=== PATIENT | male | born 1945 | race Caucasian/White ===

== ENCOUNTER 2016-11-03 09:01 | Inpatient (IN) | payer MEDICARE ==
--- NOTE | ~2016-11-03 | DS ---
Discharge Summary [facility] [address] [place]. [address] NAME: RON MCKINNEY : 47 STATUS : DIS IN PAT#: [id number] AGE: 71 ADM/REG DATE : 11/03/16 MR#: [id number] REPORT SERV DATE: 11/10/16 DICTATED BY: TIAGO SANCHEZ DATE: 11/09/16 REPORT STATUS : Draft TRANSCRIBED BY: MODL DATE: 11/09/16 ADMISSION DATE: 11/03/2016 DISCHARGE DATE: 11/09/2016 CHIEF COMPLAINT: Dysphagia. DISCHARGE DIAGNOSES: 1. Nausea, vomiting, and diarrhea due to multifactorial etiology. 2. Clostridium difficile colitis. 3. Cryptosporidium gastroenteritis. 4. Esophageal cancer, status post J-tube. 5. Hypertension. 6. Severe protein-calorie malnutrition. HISTORY OF PRESENT ILLNESS: Please see full H and P for details regarding admission from Dr. Maira Aguilar. HOSPITAL COURSE: 1. Diarrhea. The patient has a diagnosis of C. diff colitis. He will be discharged on a long vancomycin taper as he may be getting chemotherapy starting next week. At this point, we are holding. 2. Nausea, vomiting, and diarrhea. Patient also diagnosed with Cryptosporidium gastroenteritis. He will be on Alinia for a total of 14 days. He has improved, however, once tube feeds had been resumed, he did have worsening of his symptoms. He was changed from Osmolite to Vital 1.5 given concern for possible lactose intolerance. Currently, he is refusing rate of tube feed on the pump which may help his nausea and demanding to do both these at home; Home Health will assist him. 3. Esophageal cancer. The patient will be followed with chemoradiation per Dr. Sarmiento's guidance. He is status post J-tube for nausea, and he will take n.p.o. as appropriate. 4. Hypertension, continue home medications. 5. Severe protein-calorie malnutrition. Again, the patient has declined to do a pump to help with nausea and wants to do bolus feeding with Vital 1.5. As per Nutrition recommendation, would be 5 cans a day. Home health will assist with the supplies. 6. Leukopenia and anemia due to chemotherapy. Follow up with Dr. Sarmiento next week. DISCHARGE MEDICATIONS: Norvasc 5 mg daily, metoprolol 12.5 p.o. b.i.d., Alinia 500 mg p.o. b.i.d. for 8 days, vancomycin p.o. taper for C. diff, Zofran p.r.n., famotidine 20 mg daily, Compazine p.r.n., and Flomax 0.4 p.o. daily. DISCHARGE LABS: White blood cell count 3.3, hemoglobin 8.5, and platelet count 323. BMP grossly unremarkable. Time spent on discharge is greater than 30 minutes including discussion with Home Health. Discharge Summary [address] [address] NAME: RON MCKINNEY : 47 STATUS : DIS IN PAT#: [id number] AGE: 71 ADM/REG DATE : 11/03/16 MR#: [id number] REPORT SERV DATE: 11/10/16 DICTATED BY: TIAGO SANCHEZ DATE: 11/09/16 REPORT STATUS : Draft TRANSCRIBED BY: SOLEDAD DATE: 11/09/16 ROSA/SOLEDAD Tiago Sanchez MD / [id number] CC: MD Sal Black M.D.
--- NOTE | ~2016-11-03 | HP ---
History And Physical [place] [id number] [facility] [place]. [address] NAME: RON MCKINNEY : 47 STATUS : ADM IN [facility]#: [id number] AGE: 71 ADM/REG DATE : 11/03/16 MR#: [id number] REPORT SERV DATE: 11/03/16 DICTATED BY: ORESTES AGUILAR DATE: 11/03/16 REPORT STATUS : Draft TRANSCRIBED BY: MODDonald DATE: 11/03/16 DATE OF ADMISSION: 11/03/2016 CHIEF COMPLAINT: Dysphagia. HISTORY OF PRESENT ILLNESS: The patient is a very pleasant 71-year-old white male, who was diagnosed with esophageal cancer in September 2016. He has undergone J-tube placement with laparoscopic surgery and additionally EGD with a T3 N1 esophageal tumor diagnosed. The plan is for radiation and chemotherapy and then ultimately resection of the mass. He currently sees Dr. Sarmiento. He started chemo. It sounds like he took Taxol and carboplatin which was started on the 26 of October and radiation on the same day. Since starting radiation and chemo, he has had progressive dysphagia to the point where he can no longer take medicines or liquids by mouth or foods. He had a J-tube placed as this was expected in the course of his treatment that he had increased difficulties with swallowing. He has had some nausea and vomiting and he has had some slow movement through the tube. He has also had some intermittent diarrhea. He was seen in the [facility] yesterday, got some IV iron but also got some IV fluid resuscitation which seemed to help somewhat but he continues to be unable to take anything by mouth. He was not sure what to do thus far as what to do with tube feeds, so he presented to [facility] Emergency Department. Otherwise he has not had fever or chills. He does not have any abdominal pain. PAST MEDICAL HISTORY: Positive for 1. T3 N1 esophageal CA, currently undergoing chemo and radiation with plans for resection. 2. J-tube placement. 3. Port-A-Cath placement. 4. Hypertension. 5. Hyperlipidemia. 6. BPH. SOCIAL HISTORY: He previously smoked, he quit in September when he was diagnosed. He does not currently use alcohol but he previously did but not heavily. He is . His is at bedside. FAMILY HISTORY: His father had colon cancer. He has a brother who had lung cancer and another brother who had colon cancer, both are . ALLERGIES: NO DRUG ALLERGIES. HOME MEDICATIONS: Reviewed and attached. REVIEW OF SYSTEMS: A 10-point review of systems obtained with pertinent positives mentioned in the HPI. PHYSICAL EXAMINATION: VITAL SIGNS: Current vital signs, blood pressure 150/72, sats 99%, pulse 98, temperature is 98.2, and respirations 16. History And Physical [address] [address] NAME: RON MCKINNEY : 47 STATUS : ADM IN [facility]#: [id number] AGE: 71 ADM/REG DATE : 11/03/16 MR#: [id number] REPORT SERV DATE: 11/03/16 DICTATED BY: ORESTES AGUILAR DATE: 11/03/16 REPORT STATUS : Draft TRANSCRIBED BY: SOLEDAD DATE: 11/03/16 GENERAL: Well-developed white male, pleasant, talkative. HEENT: Normocephalic, atraumatic. Throat is clear. NECK: Supple. HEART: Regular rate and rhythm. LUNGS: Grossly clear. ABDOMEN: Soft, nondistended, nontender. He has a midline incision which is about 2 inches long, it looks clean and dry with no evidence of erythema. The edges are well approximated. He has a J-tube in place. The site looks clean and dry without any erythema. He has positive bowel sounds. He is soft, nontender, and nondistended on palpation. EXTREMITIES: Warm and dry. SKIN: Intact. He has no rashes or lesions noted. NEUROLOGIC: His mood and affect are appropriate. He has normal strength and tone in all four extremities. LAB AND X-RAY STUDIES: He had a feeding tube with Gastrografin done and it showed that there was good contrast opacifying the jejunum with no obstruction and no contrast extravasation. Urinalysis was essentially normal. Basic metabolic panel is essentially normal other than a mildly elevated BUN at 28. He had a glucose of 132. LFTs were normal. CBC shows an anemia with a hemoglobin of 9.2, hematocrit of 30. White count is 7.7, platelets are 339. Baseline hemoglobin previously was about 9.4 at the office. ASSESSMENT/PLAN: 1. Progressive dysphagia in a patient with esophageal cancer T3 N1, undergoing chemo and radiation. This is not surprising given the fact that he is receiving radiation therapy. I think it was suspected that he would likely need the J-tube for nutrition. We would have Nutrition see him in consultation to help us set up plans for what type of feeds and at what rate. Looks like the tube is functioning perfectly normal. I think we ought to go ahead with that. He is nontender on exam. His abdomen is benign. I suspect most of the side effects of his dysphagia are secondary to radiation. I suspect that most of the side effects of his nausea, vomiting, and diarrhea are secondary to chemotherapy. I am going to hydrate him aggressively overnight and replace the electrolytes as needed. We will have Nutrition see him in consultation and let Dr. Sarmiento know he is here so that he can see him on rounds tomorrow. We will also let Radiation Oncology know that he is here. 2. History of hypertension. Again we will try to give his crushed medications via the J- tube as this will be the only route that he will have available for some time. 3. Deep venous thrombosis prophylaxis. Subcutaneous Lovenox. 4. Disposition pending above. KIZZY/SOLEDAD Orestes Aguilar M.D. / [id number] History And Physical [address] [address] NAME: RON MCKINNEY : 47 STATUS : ADM IN [facility]#: [id number] AGE: 71 ADM/REG DATE : 11/03/16 MR#: [id number] REPORT SERV DATE: 11/03/16 DICTATED BY: ORESTES AGUILAR DATE: 11/03/16 REPORT STATUS : Draft TRANSCRIBED BY: SOLEDAD DATE: 11/03/16 CC: Nikita Morrissey M.D.
[~2016-11-03 09:01] MED LIST: CALTRAT600 PO; FLOMAX4 PO; GARLIC PO; LOP25 PO; MULTIPLE VIT PO; NORV5 PO; PEP20 PO
[2016-11-03 11:31] LABS: BASOPHILS 0 %; EOSINOPHILS 0 %; ER CBC TAT 0 Hrs 03 Mins; HEMATOCRIT 30.2 % (40.0-51.0); HEMOGLOBIN 9.2 g/dL (13.6-17.8); IMMATURE GRANULOCYTES 0.3 %; IMMATURE GRANULOCYTES ABSOLUTE 0.02 10/3/uL (0.0-0.11); LYMPHOCYTES 4.5 %; LYMPHOCYTES ABSOLUTE 0.35 10/3/uL (0.67-4.30); MEAN CORPUS HGB CONC 30.5 g/dL (32.0-36.0); MEAN CORPUSCULAR HEMOGLOB 23.7 pg (26.0-34.0); MEAN PLATELET VOLUME 9.1 fL (9.2-13.0); MONOCYTES 4.2 %; MONOCYTES ABSOLUTE 0.32 10/3/uL (0.21-1.20); NEUTROPHILS ABSOLUTE 7.01 10/3/uL (2.02-8.40); PLATELET COUNT 339 10/3/uL (150-400); RED CELL COUNT 3.88 10/6/uL (4.7-6.1); WHITE BLOOD CELLS 7.7 10/3/uL (4.5-10.5)
[2016-11-03 11:32] LABS: MANUAL DIFF NO %; MEAN CORPUSCULAR VOLUME 77.8 fL (80-100); RBC DISTRIBUTION WIDTH 17.2 % (12.0-16.0)
[2016-11-03 11:45] LABS: A/G RATIO 1.1 (0.7-1.9); ALBUMIN 3.6 G/DL (3.5-5.0); ALKALINE PHOSPHATASE 47 U/L (45-117); CALCIUM, SERUM 8.2 MG/DL (8.5-10.4); CHLORIDE, SERUM 106 MMOL/L (96-112); CO2 (CARBON DIOXIDE) 25 MMOL/L (24-34); CREATININE 0.83 MG/DL (0.70-1.30); GFR AFRICAN AMERICAN 103 ML/MIN (>=60); GFR NON AFRICAN AMERICAN 89 ML/MIN (>=60); GLOBULIN 3.2 G/DL (2.5-4.1); POTASSIUM, SERUM 3.9 MMOL/L (3.5-5.3); SGOT(AST) 9 U/L (5-40); SGPT(ALT) 13 U/L (5-65); SODIUM, SERUM 141 MMOL/L (135-148); TOTAL BILIRUBIN 0.4 MG/DL (0-1.2); TOTAL PROTEIN 6.8 G/DL (6.0-8.5)
[2016-11-03 11:48] LABS: BUN (BLOOD UREA NITROGEN) 28 MG/DL (6-23); GLUCOSE, SERUM 132 MG/DL (60-99)
[2016-11-03 12:19] LABS: ASCORBIC ACID (UR NOT ORDER) NEG (NEG); BILIRUBIN, URINE NEGATIVE (NEG); ER URINALYSIS TAT 0 Hrs 08 Mins; KETONE, URINE TRACE MG/DL (NEG); LEUKOCYTE ESTERASE(NOT OR NEG (NEG); NITRITE (URINE) NEG (NEG); WBC (NOT ORDERED) (RFLEX) 5 (0-5)
[2016-11-03] MEDS ORDERED: NORV5 PO (12:36)
[2016-11-03] MEDS ORDERED: FLOMAX4 PO (12:37)
[2016-11-03] MEDS ORDERED: LOP25 PO (12:37)
[2016-11-03] MEDS ORDERED: ADVIL PO (12:37)
[2016-11-03] MEDS ORDERED: PEP20 PO (12:37)
[2016-11-03] MEDS ORDERED: COMP10B PO (12:38)
[2016-11-03] MEDS ORDERED: [UNRECOGNIZED DRUG - OTHER] IV (12:41)
[2016-11-03] MEDS ORDERED: [UNRECOGNIZED DRUG - REMARK] IV (12:42)
[2016-11-03] MEDS ORDERED: OTC ALLERGY TABLET PO (12:45)
[2016-11-04 04:55] LABS: BASOPHILS 0 %; EOSINOPHILS 0 %; HEMOGLOBIN 8.6 g/dL (13.6-17.8); IMMATURE GRANULOCYTES 0.5 %; IMMATURE GRANULOCYTES ABSOLUTE 0.03 10/3/uL (0.0-0.11); LYMPHOCYTES 2.8 %; LYMPHOCYTES ABSOLUTE 0.17 10/3/uL (0.67-4.30); MEAN CORPUS HGB CONC 30.7 g/dL (32.0-36.0); MEAN CORPUSCULAR HEMOGLOB 24.9 pg (26.0-34.0); MEAN PLATELET VOLUME 9.7 fL (9.2-13.0); MONOCYTES 5.5 %; MONOCYTES ABSOLUTE 0.34 10/3/uL (0.21-1.20); NEUTROPHILS 91.2 %; NEUTROPHILS ABSOLUTE 5.59 10/3/uL (2.02-8.40); PLATELET COUNT 294 10/3/uL (150-400); RBC DISTRIBUTION WIDTH 17.5 % (12.0-16.0); RED CELL COUNT 3.45 10/6/uL (4.7-6.1); WHITE BLOOD CELLS 6.1 10/3/uL (4.5-10.5)
[2016-11-04 05:00] LABS: MANUAL DIFF NO %; MEAN CORPUSCULAR VOLUME 81.2 fL (80-100)
[2016-11-04 05:06] LABS: CALCIUM, SERUM 7.7 MG/DL (8.5-10.4); CHLORIDE, SERUM 111 MMOL/L (96-112); CO2 (CARBON DIOXIDE) 25 MMOL/L (24-34); CREATININE 0.65 MG/DL (0.70-1.30); GFR AFRICAN AMERICAN 114 ML/MIN (>=60); GFR NON AFRICAN AMERICAN 99 ML/MIN (>=60); GLUCOSE, SERUM 113 MG/DL (60-99); POTASSIUM, SERUM 3.3 MMOL/L (3.5-5.3); SODIUM, SERUM 145 MMOL/L (135-148)
[2016-11-04 05:12] LABS: BUN (BLOOD UREA NITROGEN) 18 MG/DL (6-23)
[2016-11-06 07:50] LABS: BASOPHILS 0 %; EOSINOPHILS 1.7 %; EOSINOPHILS ABSOLUTE 0.06 10/3/uL (0.0-0.53); HEMATOCRIT 25.8 % (40.0-51.0); HEMOGLOBIN 7.9 g/dL (13.6-17.8); IMMATURE GRANULOCYTES 0.3 %; IMMATURE GRANULOCYTES ABSOLUTE 0.01 10/3/uL (0.0-0.11); LYMPHOCYTES 4.8 %; LYMPHOCYTES ABSOLUTE 0.17 10/3/uL (0.67-4.30); MANUAL DIFF NO %; MEAN CORPUS HGB CONC 30.6 g/dL (32.0-36.0); MEAN CORPUSCULAR HEMOGLOB 24.1 pg (26.0-34.0); MEAN CORPUSCULAR VOLUME 78.7 fL (80-100); MEAN PLATELET VOLUME 9.7 fL (9.2-13.0); MONOCYTES 3.1 %; MONOCYTES ABSOLUTE 0.11 10/3/uL (0.21-1.20); NEUTROPHILS 90.1 %; NEUTROPHILS ABSOLUTE 3.21 10/3/uL (2.02-8.40); PLATELET COUNT 210 10/3/uL (150-400); RBC DISTRIBUTION WIDTH 17.6 % (12.0-16.0); RED CELL COUNT 3.28 10/6/uL (4.7-6.1); WHITE BLOOD CELLS 3.6 10/3/uL (4.5-10.5)
[2016-11-06 08:19] LABS: ALKALINE PHOSPHATASE 50 U/L (45-117); CALCIUM, SERUM 7.5 MG/DL (8.5-10.4); CHLORIDE, SERUM 104 MMOL/L (96-112); CO2 (CARBON DIOXIDE) 26 MMOL/L (24-34); CREATININE 0.51 MG/DL (0.70-1.30); GFR AFRICAN AMERICAN 126 ML/MIN (>=60); GFR NON AFRICAN AMERICAN 109 ML/MIN (>=60); GLUCOSE, SERUM 124 MG/DL (60-99); POTASSIUM, SERUM 3.4 MMOL/L (3.5-5.3); SGOT(AST) 6 U/L (5-40); SGPT(ALT) 9 U/L (5-65); TOTAL BILIRUBIN 0.2 MG/DL (0-1.2)
[2016-11-06 08:20] LABS: ALBUMIN 2.6 G/DL (3.5-5.0); BUN (BLOOD UREA NITROGEN) 6 MG/DL (6-23); GLOBULIN 2.5 G/DL (2.5-4.1); SODIUM, SERUM 138 MMOL/L (135-148); TOTAL PROTEIN 5.1 G/DL (6.0-8.5)
[2016-11-09 04:33] LABS: BASOPHILS 0.3 %; BASOPHILS ABSOLUTE 0.01 10/3/uL (0.0-0.16); EOSINOPHILS 2.7 %; EOSINOPHILS ABSOLUTE 0.09 10/3/uL (0.0-0.53); HEMATOCRIT 27.2 % (40.0-51.0); HEMOGLOBIN 8.5 g/dL (13.6-17.8); IMMATURE GRANULOCYTES 0.3 %; IMMATURE GRANULOCYTES ABSOLUTE 0.01 10/3/uL (0.0-0.11); LYMPHOCYTES 8.5 %; LYMPHOCYTES ABSOLUTE 0.28 10/3/uL (0.67-4.30); MEAN CORPUS HGB CONC 31.3 g/dL (32.0-36.0); MEAN CORPUSCULAR HEMOGLOB 25.5 pg (26.0-34.0); MEAN PLATELET VOLUME 10.2 fL (9.2-13.0); MONOCYTES 9.1 %; NEUTROPHILS 79.1 %; NEUTROPHILS ABSOLUTE 2.59 10/3/uL (2.02-8.40); RBC DISTRIBUTION WIDTH 19.9 % (12.0-16.0); RED CELL COUNT 3.33 10/6/uL (4.7-6.1); WHITE BLOOD CELLS 3.3 10/3/uL (4.5-10.5)
[2016-11-09 04:35] LABS: MANUAL DIFF NO %; MEAN CORPUSCULAR VOLUME 81.7 fL (80-100); PLATELET COUNT 323 10/3/uL (150-400)
[2016-11-09 07:40] LABS: CALCIUM, SERUM 7.8 MG/DL (8.5-10.4); CHLORIDE, SERUM 106 MMOL/L (96-112); CO2 (CARBON DIOXIDE) 22 MMOL/L (24-34); CREATININE 0.64 MG/DL (0.70-1.30); GFR AFRICAN AMERICAN 115 ML/MIN (>=60); GFR NON AFRICAN AMERICAN 99 ML/MIN (>=60); SODIUM, SERUM 137 MMOL/L (135-148)
[2016-11-09 07:41] LABS: BUN (BLOOD UREA NITROGEN) 13 MG/DL (6-23); GLUCOSE, SERUM 99 MG/DL (60-99); POTASSIUM, SERUM 4.3 MMOL/L (3.5-5.3)
[2016-11-09] MEDS ORDERED: ALINIA J-TUBE (13:59)
[2016-11-09] MEDS ORDERED: ZOFRAN4 PO (14:00)
[2016-11-09] MEDS ORDERED: VANCOCIN HCL125 MG PO (14:05)
[2016-11-24] MEDS ORDERED: CHEMO IV (14:20)
[2016-11-24] MEDS ORDERED: FLOMAX4 PO (14:21)
[2016-11-24] MEDS ORDERED: LOP25 PO (14:21)
[2016-11-24] MEDS ORDERED: NORV5 PO (14:21)
[2016-11-24] MEDS ORDERED: VANCOMYCIN 125 MG PO (14:22)
[2016-11-24] MEDS ORDERED: COMP10B PO ×2 (14:22→14:24)
[2016-11-24] MEDS ORDERED: [UNRECOGNIZED DRUG - REMARK] IV (14:23)
[2016-11-24] MEDS ORDERED: IMOD PO (14:24)
[2016-11-24] MEDS ORDERED: PROBIOTIC PO (14:25)
[2016-11-24] MEDS ORDERED: MAALOX PO (14:25)
[2016-11-24] MEDS ORDERED: OTC ALLERGY MED PO (14:29)
[2017-01-21] MEDS ORDERED: LOP25 PO (15:28)
[2017-01-21] MEDS ORDERED: ACET500CAP PO (15:29)
== END 2016-11-09 16:10 | disposition home health service (06) | DRG 371 ==
LOC: ER 09:01 → ER/OF 14:47 → 4SO 18:58 → 4EA 11-07 14:32
PROVIDERS: Hospitalist; Internal Medicine; Internal Medicine Hematology & Oncology
PROC: BW0 Imaging, Anatomical Regions, Plain Radiography (ICD-10-PCS; principal; 2016-11-03)
DX: A04.7 Enterocolitis due to Clostridium difficile (principal); E43 Unspecified severe protein-calorie malnutrition; C15.9 Malignant neoplasm of esophagus, unspecified; R13.11 Dysphagia, oral phase; Z68.22 Body mass index [BMI] 22.0-22.9, adult; I10 Essential (primary) hypertension; E78.5 Hyperlipidemia, unspecified; N40.0 Benign prostatic hyperplasia without lower urinary tract symptoms; A07.2 Cryptosporidiosis; Z51.5 Encounter for palliative care
CPT/HCPCS: 43761; 74000; 76000; 77386; 80048; 80053; 81001; 83735; 84132; 85025; 87045; 87046; 87046-59; 87328; 87329; 87493; 87493-59; 87899; 87899-59; 89055; 96361; 96374; 99285; A9270-GY; C9113; J0360; J2405

== ENCOUNTER 2016-11-24 15:40 | Inpatient (IN) | payer MEDICARE, SELFPAY ==
--- NOTE | ~2016-11-24 | HP ---
History And Physical [place] [id number] [facility] [place]. [address] NAME: RON MCKINNEY : 47 STATUS : ADM IN PAT#: [id number] AGE: 71 ADM/REG DATE : 11/24/16 MR#: [id number] REPORT SERV DATE: 11/24/16 DICTATED BY: ALE RESENDIZ DATE: 11/24/16 REPORT STATUS : Draft TRANSCRIBED BY: MODL DATE: 11/24/16 DATE OF ADMISSION: 11/24/2016 HISTORY OF PRESENT ILLNESS: This is a 71-year-old patient whom I was asked to admit transfer from [facility] after he presented there with inability to keep food down and feeling weak. The patient was found to have also associated diarrhea, weakness, nausea, vomiting that seems to be constant in nature. The patient also was noted to have vomited blood. Further evaluation at [facility] showed an INR of 1.3. Hemoglobin initially was 6. The patient was typed and crossed and was transfused four units of blood. During his hospitalization there, the patient did have a brief episode of being pulseless. CPR was initiated and return of circulation was established in two minutes. The patient got 1 amp of epi and then was intubated for airway protection. He was hypotensive and was started on Levophed. He was also volume resuscitated. The patient has a known history of a fungating esophageal mass and adenocarcinoma in the distal esophagus at the EG junction. The patient is status post neoadjuvant chemotherapy and port placement for chemotherapy administration. The patient also received 2 units of fresh frozen plasma. The patient is followed by Dr. Sarmiento as an outpatient. 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 EUS with two large in lymph loads showed the mass extending into the GE junction and was staged at T3, N1. The patient then had weekly carboplatin and Taxol and radiation induction. The patient also has a history of C difficile that was diagnosed on the 11/03/2016 and is currently on a tapering dose of Vancocin. Apparently, his diarrhea has resolved according to Dr. Sarmiento's notes. After further evaluation at [facility], it was thought prudent to transfer the patient to [facility] for mesenteric arteriogram and possible embolization. Both Surgical Services and GI Services have been notified of the patient's transfer. ALLERGIES: THE PATIENT HAS NO KNOWN DRUG ALLERGIES. CURRENT MEDICATIONS: Maalox, Norvasc at 5 mg, Imodium at 2 mg q.4 hours p.r.n., Lopressor 12.5 mg b.i.d., probiotic, Compazine, Flomax, chemotherapy as per Dr. Sarmiento, last treatment was to be given today, actually the 11/24/2016. Last treatment was taken on the 11/17/2016. He is on a tapering dose of vancomycin. We will have Pharmacy to determine where along the course he is. PAST MEDICAL HISTORY: Significant for: 1. T3 N1 esophageal cancer, currently undergoing chemotherapy. The patient is status post port placement by Dr. Sosa on 10/25/2016. 2. History of hypertension. 3. Hyperlipidemia. 4. BPH. SOCIAL HISTORY: Significant for smoking and the patient quit in September and does not currently use alcohol but had a previously heavy use of alcohol. He is and lives at home with his . FAMILY HISTORY: Significant for colon cancer in his father and he has a brother who had lung History And Physical [address] [address] NAME: RON MCKINNEY : 47 STATUS : ADM IN [facility]#: [id number] AGE: 71 ADM/REG DATE : 11/24/16 MR#: [id number] REPORT SERV DATE: 11/24/16 DICTATED BY: ALE RESENDIZ DATE: 11/24/16 REPORT STATUS : Draft TRANSCRIBED BY: SOLEDAD DATE: 11/24/16 cancer and another brother with colon cancer, both are . REVIEW OF SYSTEMS: Could not be obtained from the patient since he is orally intubated, sedated, and was paralyzed for transfer to this facility. PHYSICAL EXAMINATION: GENERAL: The patient is orally intubated and sedated with Diprivan and received 10 mg of Norcuron for transfer, I believe. He appears pale. CURRENT VITAL SIGNS: He is 100% saturated on an FiO2 of 100, tidal volume of 550, CMV of 14, and PEEP of 5. Heart rate is 98, he is afebrile, respiratory rate is 14, and blood pressure 150/86. SKIN: Warm and dry. HEENT: Head is atraumatic and normocephalic. The patient appears emaciated. He is orally intubated. OG tube in place draining bloody gastric secretions. NECK: Easily movable and is without JVD, lymphadenopathy, or thyromegaly. LUNGS: Diminished at the bases. No wheezing is heard. CARDIAC: Reveals a regular rate and rhythm. No significant murmurs. ABDOMEN: Flat nondistended with a J-tube in place without any evidence of infection or drainage. He has a right femoral central line. He also has a left subclavian port that is accessed. Brown catheter is in place. There are no masses felt in the abdomen. Bowel sounds are diminished. EXTREMITIES: Without cyanosis, clubbing, or edema. Pulses are palpable and symmetrical. NEUROLOGIC: Exam is not possible at this time secondary to paralytics and sedation. DATA: Chest x-ray shows good placement of the endotracheal tube. Port in place. Lungs he feels are without infiltrate. KUB shows jejunal feeding tube in place. NG tube is present with the chip in the stomach. P.m. cortisol is 51. Procalcitonin pending. Sodium 143, potassium 4.7, chloride 110 , bicarb 25, BUN 52, creatinine 0.88, blood sugar 157, magnesium 2.8, phosphorus 1.2. White cell count 8.2, hemoglobin 9.2, hematocrit 26, and platelet count of 107,000. PTT is 26, PT is 15.9, INR is 1.3. ABG is pending. ASSESSMENT AND PLAN: 1. The patient will be scheduled for mesenteric arteriogram with embolization if possible to control bleeding of his esophageal tumor. The patient will be kept intubated and sedated. Neurologic exam will be monitored. 2. Serial H and H's will be obtained. The patient has been typed and crossed with instructions to keep two units ahead. 3. Gastrointestinal intervention at this time is not possible since this is the bleeding fungating esophageal mass, but Dr. Rodriguez is aware of the patient and if need be, will be consulted. 4. We will make Dr. Pantera Holcomb aware that the patient is in-house since he is on-call for Dr. Sosa who is familiar with the patient. 5. We will consult Hematology/Oncology if needed for further prognostic treatment, prognostic planning, and further chemotherapy once this is resolved. 6. The patient was diagnosed with Clostridium difficile on the 11/03/2016 and we will continue Vancocin down the J-tube. History And Physical [facility] [address]. [address] NAME: RON MCKINNEY : 47 STATUS : ADM IN PAT#: [id number] AGE: 71 ADM/REG DATE : 11/24/16 MR#: [id number] REPORT SERV DATE: 11/24/16 DICTATED BY: ALE RESENDIZ DATE: 11/24/16 REPORT STATUS : Draft TRANSCRIBED BY: SOLEDAD DATE: 11/24/16 Total time spent with this patient's critical care time commenced at 3:50 p.m. and ended at 4.50 p.m. The patient is in critical condition, needs frequent monitoring, hemodynamic assessment, and management of blood products, blood pressure, and pressors. Total time for critical care is 60 minutes. JULIANA/SOLEDAD Ale Resendiz M.D. / [id number] CC: Ale Resendiz M.D. UNKNOWN
--- NOTE | ~2016-11-24 | DS ---
Discharge Summary [facility] [address] [place]. [address] NAME: RON MCKINNEY : 47 STATUS : DIS IN PAT#: [id number] AGE: 71 ADM/REG DATE : 11/24/16 MR#: [id number] REPORT SERV DATE: 01/17/17 DICTATED BY: CESAR SU II DATE: 01/16/17 REPORT STATUS : Draft TRANSCRIBED BY: MODL DATE: 01/16/17 ADMISSION DATE: 11/24/2016 DISCHARGE DATE: 12/02/2016 DISCHARGE DIAGNOSES: 1. Acute gastrointestinal bleed secondary to bleeding esophageal tumor. 2. Acute blood loss anemia. 3. Stage T3, N1 esophageal adenocarcinoma, status post chemotherapy and currently on radiation. 4. PEA arrest. 5. Clostridium difficile diarrhea. 6. Hypertension. 7. BPH. CONSULTS: 1. Dr. Resendiz with Critical Care. 2. Dr. Rodriguez with GI. 3. Dr. Kenney with Cardiothoracic Surgery. PROCEDURES: Interventional Radiology catheter embolization of bleeding esophageal tumor. BRIEF HISTORY OF PRESENT ILLNESS: The patient is a 71-year-old male with the above history, who presents to [facility] as a transfer from [facility] where he had a brief episode of PEA arrest and was quickly resuscitated and subsequently transferred. For detailed history and physical examination, please see Dr. Resendiz's note from 01/22/2017. For details of the patient's ICU stay, please see Dr. Resendiz's interim summary. He was overall stabilized in the ICU but continued to bleed and was taken to Interventional Radiology for embolization which was successful. The patient's hemoglobin stabilized, and he was eventually able to be transferred to the floor. Regarding his anemia, his hemoglobin actually remained stable, between 8 and 9. His tube feeds were restarted, and he had trouble with diarrhea and had a rectal tube in while in the ICU. This was removed and improved with Zanaflex and Lomotil. Regarding his esophageal cancer, his radiation was continued, and at the time of discharge had 5 more days, so he was transferred to [facility] for further rehab while finishing out his radiation. Regarding his C. diff, his repeat stool antigen was negative, and the patient continued the vancomycin taper. The patient was overall stable for discharge. DISCHARGE MEDICATIONS: 1. Lomotil 5 mg p.o. q.6 hours. 2. Imodium 2 mg p.o. q.4 hours. 3. Vancomycin taper through 12/12/2016. 4. Opium belladonna suppository q.6 hours p.r.n. bladder spasms. 5. Seroquel 25 mg p.o. at bedtime. 6. Compazine 10 mg p.o. daily. 7. Compazine 10 mg q.4 hours p.r.n. nausea. 8. Flomax 0.4 mg p.o. daily. 9. Probiotic daily. Discharge Summary [place] [id number] [facility] [place]. [address] NAME: RON MCKINNEY : 47 STATUS : DIS IN PAT#: [id number] AGE: 71 ADM/REG DATE : 11/24/16 MR#: [id number] REPORT SERV DATE: 01/17/17 DICTATED BY: CESAR SU II DATE: 01/16/17 REPORT STATUS : Draft TRANSCRIBED BY: SOLEDAD DATE: 01/16/17 DISCHARGE INSTRUCTIONS: The patient will continue radiation while at [facility] undergoing rehab. ALVARO/SOLEDAD Cesar Su II, MD / [id number] CC: MD Sal Ray II, M.D.
--- NOTE | ~2016-11-24 | IDS ---
Interim Discharge Summary [facility] [address] [place]. [address] NAME: RON MCKINNEY : 47 STATUS : ADM IN PAT#: [id number] AGE: 71 ADM/REG DATE : 11/24/16 MR#: [id number] REPORT SERV DATE: 11/26/16 DICTATED BY: ALE RESENDIZ DATE: 11/26/16 REPORT STATUS : Draft TRANSCRIBED BY: MODL DATE: 11/26/16 ADMISSION DATE: 11/24/2016 DISCHARGE DATE: INTERIM DISCHARGE SUMMARY This is a 71-year-old patient that we were asked to admit as a transfer from [facility] Emergency Room after he presented there with nausea, vomiting, and weakness associated with diarrhea. The patient was found to have a hemoglobin of 6 and actually had a brief episode of CPR and PEA. Return of circulation was under 2 minutes, was on 1 amp of epi. The patient was then volume resuscitated and intubated. 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 He was staged at T3 N1 and was followed by Dr. Sarmiento getting weekly carboplatin and Taxol and radiation induction. The patient also was diagnosed with C. diff diarrhea and on 11/03/2016 and has been on Vancocin. It was of concern that the patient may continue to bleed and then when the patient was transferred here, he was stabilized and by the time he got here was already off Levophed. He was taken to Interventional Radiology and actually did find an area, where he was embolized and came back to the MICU, intubated, and with a left femoral sheath. Since that time, he has had serial hemoglobin and hematocrits and has not required any further transfusion. He was successfully extubated on the morning of 11/26/2016 and his sheath was pulled on the afternoon of 11/26/2016 and he remains in stable condition. I have decreased the frequency of his serial hemoglobin and hematocrits. He currently remains off Levophed and had a right femoral line and that has been changed to a PICC line. GI, Dr. Rodriguez saw the patient on 11/25/2016 and has recommended continuing Protonix drip for 48 to 72 hours. The patient already has a J-tube that was established by Dr. Sosa as well as a left subclavian port that also was placed by Dr. Sosa; however, Dr. Sosa is out of town and Dr. Pantera Holcomb is covering for Dr. Sosa. The surgical service was notified of the patient when he first came here in the event that he needed to go to the OR for any reason. Dr. Kenney saw the patient and was aware of him in the event that he had to be taken to the OR, which did not happen. Dr. Rodriguez also said that he would not be doing any endoscopy on the patient at this time and felt that he was at high risk for bleeding in the setting of embolization in a patient who has already received chemo and radiation therapy. I further discussed the patient with Dr. Stringer who is on-call for [facility] and he in fact spoke with Dr. Sarmiento and the consensus from the oncologist is that he is at high risk for cancer treatment failure and if he does not do well or continues to have issues with bleeding and there was no improving then palliative care would be appropriate. However, I am not aware that any of the Hematology Oncology attendings have spoken to the family directly. I did update the daughter on . Today, I have not had the opportunity to talk to her. So, I think the plan for this patient will be to start nutrition through the J-tube. He really should be n.p.o. Continue the Protonix drip as recommended by Dr. Rodriguez. If he remains stable, he possibly can be transferred to the floor and I think further discussion has to be had with the oncologist and the family regarding code status and/or palliative care. I do not think that any further chemotherapy or radiation therapy will be pursued at this time. The patient is a full code as of this dictation. Interim Discharge Summary [place] [id number] [facility] [place]. [address] NAME: RON MCKINNEY : 47 STATUS : ADM IN PAT#: [id number] AGE: 71 ADM/REG DATE : 11/24/16 MR#: [id number] REPORT SERV DATE: 11/26/16 DICTATED BY: ALE RESENDIZ DATE: 11/26/16 REPORT STATUS : Draft TRANSCRIBED BY: MODDonald DATE: 11/26/16 /SOLEDAD Ale Resendiz M.D. / [id number] CC: Nikita Perez M.D.
--- NOTE | ~2016-11-24 | CN ---
Consultation Report [facility] [address] [place]. [address] NAME: RON MCKINNEY : 47 STATUS : ADM IN PAT#: [id number] AGE: 71 ADM/REG DATE : 11/24/16 MR#: [id number] REPORT SERV DATE: 11/24/16 DICTATED BY: CESAR KENNEY JR. DATE: 11/24/16 REPORT STATUS : Draft TRANSCRIBED BY: MODL DATE: 11/24/16 CONSULTATION NOTE DATE OF CONSULTATION: 11/24/2016 REASON FOR CONSULTATION: Esophageal bleeding. BRIEF HISTORY OF PRESENT ILLNESS: This is a 71-year-old gentleman who was transferred from [facility] to [facility] or [facility] for apparently GI bleed associated with esophageal cancer. 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 Recent PET scan on the patient demonstrated some thickening and abnormality to his distal esophagus but he had a significant uptake within the proximal gastric component, had significant uptake within the proximal stomach. Difficult to tell whether this image-humphrey was actually an esophageal or gastric cancer. An endoscopy by Dr. Charles Wray had demonstrated a mass in the distal esophagus with imaging studies confirming likely N1 disease. The patient has had a previous history of Clostridium difficile diagnosed in October and is on vancomycin for that. He is currently in special procedures as he was undergoing a mesenteric arteriogram for possible embolization. Dr. Ryan Sosa is his primary surgeon but was out of town. I have been asked to consult on the patient in case surgical intervention is needed. ALLERGIES: THE PATIENT HAS NO KNOWN DRUG ALLERGIES. MEDICATIONS: Maalox; Norvasc; Imodium; Lopressor; probiotic ;Compazine; Flomax, currently getting chemotherapy by Dr. Stevie Sarmiento. He is also on tapering dose of vancomycin. PAST MEDICAL HISTORY: Significant for the T3 N1 esophageal adenocarcinoma as well as esophageal cancer. He is currently undergoing chemotherapy and radiation therapy. He has had a port placed by Dr. Ryan Sosa on 10/25/2016. He has a history of hypertension, hyperlipidemia, and benign prostatic hypertrophy. The patient has a significant past history of heavy alcohol use with recent smoking of an unknown quantity. The patient was intubated and could not elicit that from the patient. He apparently quit in September. FAMILY HISTORY: Significant for colon cancer in his father and his brother had lung cancer. REVIEW OF SYSTEMS: Cannot be obtained since the patient is orally intubated, sedated, and was paralyzed for transfer to [facility]. PHYSICAL EXAMINATION: GENERAL: This is a sedated intubated patient who appears pale. VITAL SIGNS: Current vital signs, O2 saturation 100% on FiO2 100%, tidal volume is 550, CMV of 14, and PEEP of 5. His heart rate is 98, respiratory rate 14, and blood pressure is 150/86. Consultation Report [place] [id number] [facility] [place]. [address] NAME: RON MCKINNEY : [birth year] STATUS : ADM IN [facility]#: [id number] AGE: 71 ADM/REG DATE : 11/24/16 MR#: [id number] REPORT SERV DATE: 11/24/16 DICTATED BY: CESAR KENNEY JR. DATE: 11/24/16 REPORT STATUS : Draft TRANSCRIBED BY: SOLEDAD DATE: 11/24/16 HEENT: His head was atraumatic, normocephalic. The patient appears malnourished. Orogastric tube was placed and draining bloody secretions. NECK: Supple with no lymphadenopathy or thyromegaly. LUNGS: Diminished in both bases. CARDIOVASCULAR: Revealed no murmurs or rubs. ABDOMEN: Soft, nontender with a J-tube in place. EXTREMITIES: Showed no significant edema or cyanosis. Pulses were palpable bilaterally. NEUROLOGIC: Was unable to be assessed given the patient's current status. DATA: Chest x-ray shows placement of endotracheal tube. KUB shows jejunal feeding tube in place. PM cortisol is 51. Procalcitonin is pending. Sodium is 143, potassium 4.7, chloride 110, bicarb 25, BUN 52, and creatinine 0.88. Blood sugar is 157. His hemoglobin was 9.2 and platelets 107,000. IMPRESSION: This is a gentleman with apparently an upper GI bleed related to esophageal cancer. He has been undergoing chemotherapy and radiation therapy for his cancer. I do not think emergent surgical intervention is indicated. We will continue to be available during the resuscitative efforts. He is currently in special procedures getting an embolization procedure performed. I would be happy to follow along and provide help as needed. SHREYAS/SOLEDAD Cesar Kenney Jr., M.D. / [id number] CC: Amy Resendiz M.D.
--- NOTE | ~2016-11-24 | CN ---
Consultation Report [facility] [address] [place]. [address] NAME: RON CHAVARRIA : 47 STATUS : ADM IN [facility]#: [id number] AGE: 71 ADM/REG DATE : 11/24/16 MR#: [id number] REPORT SERV DATE: 11/25/16 DICTATED BY: RAYMOND ZHU DATE: 11/25/16 REPORT STATUS : Draft TRANSCRIBED BY: MODL DATE: 11/25/16 INPATIENT CONSULT NOTE DATE OF CONSULTATION: 11/25/2016 REASON FOR CONSULTATION: Upper GI bleeding. HISTORY OF PRESENT ILLNESS: Mr. Chavarria is an unfortunate 71-year-old male patient who presented to the emergency department yesterday with complaints of weakness and fatigue. The patient also complained of having vomited blood. The patient was noted initially upon presentation to have a hemoglobin of 6.1 with an INR of 1.3. The patient's past medical history is significant for esophageal adenocarcinoma that had been diagnosed previously for which he has been undergoing treatment with chemotherapy and XRT. During his stay in the emergency department and while he was being evaluated, the patient was noted to turn ashen and become unresponsive. The patient was noted to have a very low blood pressure at that time and had no pulse, although he did maintain a rhythm on the monitors. CPR was initiated, and the patient was able to be revived with a full fluid bolus. Repeat ABG check of his hemoglobin showed his hemoglobin had fallen down to 5.0. No bright red blood per rectum. No melena by report. No further suggestion of upper GI bleeding. The patient was intubated for airway protection and was stabilized hemodynamically with the addition of Levophed and he was transferred emergently to the [facility] where he underwent angiography and embolization of a blood vessel feeding his esophagus by report. REVIEW OF SYSTEMS: Review of systems was unable to be performed as patient is intubated and sedated. PAST MEDICAL HISTORY: Includes: 1. Esophageal cancer stage is T3 N1, currently undergoing chemotherapy and radiation therapy. 2. Hypertension. 3. Hyperlipidemia. 4. BPH. FAMILY HISTORY: The patient does have a significant family history for colon cancer. SOCIAL HISTORY: The patient reportedly quit smoking in September. No alcohol or illicit substance use. ALLERGIES: THE PATIENT HAS NO KNOWN ALLERGIES. OUTPATIENT MEDICATIONS: Include 1. Flomax. 2. Lopressor. 3. Norvasc. Consultation Report [facility] [address] [place]. [address] NAME: RON CHAVARRIA : 47 STATUS : ADM IN PAT#: [id number] AGE: 71 ADM/REG DATE : 11/24/16 MR#: [id number] REPORT SERV DATE: 11/25/16 DICTATED BY: RAYMOND ZHU DATE: 11/25/16 REPORT STATUS : Draft TRANSCRIBED BY: MODL DATE: 11/25/16 4. Compazine. 5. Vancomycin. 6. Imodium. 7. Probiotic. 8. Maalox. PHYSICAL EXAMINATION: VITAL SIGNS: Most recent vital signs include temperature of 98.9, blood pressure of 98/72, pulse of 100, and saturating 100% on room air. GENERAL INSPECTION: Reveals a elderly male, lying in bed, in no apparent distress. He is intubated and sedated. HEENT: Head is normocephalic, atraumatic. Sclerae nonicteric. Pupils are equal and round. HEART: Pulse rate is mildly tachycardic. Both normal S1, S2. LUNGS: Sounds are very coarse to auscultation anteriorly. ABDOMEN: Soft, nontender, nondistended with normoactive bowel sounds. EXTREMITIES: The patient has no cyanosis, clubbing, or edema. SKIN: No jaundice or rash. NEUROLOGIC: No motor deficits were able to be established as patient is sedated also mental status could not be evaluated as well. LABORATORY DATA: Most recent laboratory results include hemoglobin of 8.3, white count of 6.4, and platelet count of 142,000. Electrolytes were remarkable only for an elevated BUN of 46. Phosphorus was low at 1.6. No pertinent imaging to review. ASSESSMENT AND PLAN: Mr. Chavarria is an unfortunate 71-year-old male with a stage T3 N1 esophageal adenocarcinoma undergoing chemotherapy and radiation, who presented with an upper gastrointestinal bleed, almost certainly bleeding from his cancer. He was taken for urgent embolization after undergoing a PEA arrest in the emergency department at [facility]. Currently, the patient is not stable for endoscopic evaluation or treatment, having just sustained a cardiac arrest within the last 24 hours. We would recommend continued supportive care and transfusion of blood and blood products as needed. 1. We would continue Protonix drip for at least a 48 to 72 hours. 2. We will keep the patient n.p.o. for the time being. 3. We would continue to monitor hemoglobin, platelets, and coagulation factors and transfuse blood products as felt necessary. The patient should be continued with supportive care at this point. Thank you very much for this interesting consult. We will continue to follow along with you. Please call with any questions concerns you might have. EMMA/SOLEDAD Consultation Report [place] [id number] [facility] [place]. [address] NAME: RON CHAVARRIA : 47 STATUS : ADM IN [facility]#: [id number] AGE: 71 ADM/REG DATE : 11/24/16 MR#: [id number] REPORT SERV DATE: 11/25/16 DICTATED BY: RAYMOND ZHU DATE: 11/25/16 REPORT STATUS : Draft TRANSCRIBED BY: SOLEDAD DATE: 11/25/16 Raymond Zhu MD / [id number] CC: Nikita Perez M.D.
[~2016-11-24 15:40] MED LIST changes: +ADVIL PO; +ALINIA J-TUBE; +CHEMO IV; +COMP10B PO; +IMOD PO; +MAALOX PO; +OTC ALLERGY MED PO; +OTC ALLERGY TABLET PO; +PROBIOTIC PO; +VANCOCIN HCL125 MG PO; +VANCOMYCIN 125 MG PO; +ZOFRAN4 PO; +[UNRECOGNIZED DRUG - OTHER] IV; +[UNRECOGNIZED DRUG - REMARK] IV; +[UNRECOGNIZED DRUG - REMARK] IV
[2016-11-24 16:24] LABS: HEMATOCRIT 26.6 % (40.0-51.0); HEMOGLOBIN 9.2 g/dL (13.6-17.8); MEAN PLATELET VOLUME 9.4 fL (9.2-13.0); NUCLEATED RED BLOOD CELLS 2.6 /100WBC (0-0); WHITE BLOOD CELLS 8.2 10/3/uL (4.5-10.5)
[2016-11-24 16:26] LABS: MANUAL DIFF YES %; MEAN CORPUS HGB CONC 34.6 g/dL (32.0-36.0); MEAN CORPUSCULAR HEMOGLOB 29.9 pg (26.0-34.0); MEAN CORPUSCULAR VOLUME 86.4 fL (80-100); PLATELET COUNT 107 10/3/uL (150-400); RBC DISTRIBUTION WIDTH 16.8 % (12.0-16.0); RED CELL COUNT 3.08 10/6/uL (4.7-6.1)
[2016-11-24 16:28] LABS: INTERNATIONAL NORMAL RATI 1.3 UNITS (-); PARTIAL THROMBO TIME 26.3 SEC (22.5-37.2); PROTIME (NOT ORD) 15.9 SEC (12.0-14.5)
[2016-11-24 16:46] LABS: BUN (BLOOD UREA NITROGEN) 52 MG/DL (6-23); CALCIUM, SERUM 7.2 MG/DL (8.5-10.4); CHLORIDE, SERUM 110 MMOL/L (96-112); CO2 (CARBON DIOXIDE) 25 MMOL/L (24-34); CREATININE 0.88 MG/DL (0.70-1.30); GFR AFRICAN AMERICAN 101 ML/MIN (>=60); GFR NON AFRICAN AMERICAN 87 ML/MIN (>=60); GLUCOSE, SERUM 157 MG/DL (60-99); PHOSPHORUS, SERUM 1.2 MG/DL (2.5-4.5); POTASSIUM, SERUM 4.7 MMOL/L (3.5-5.3); SODIUM, SERUM 143 MMOL/L (135-148)
[2016-11-24 16:51] LABS: ALLENS TEST Pos; BE (BASE EXCESS) 4.4 MEQ/L (0 +/- 2.5); HCO3 (ACTUAL BICARBONATE) 27.1 MEQ/L (23-27); HEMOBLOGIN CONTENT 9.5 G/DL (14-18); INSTRUMENT SERIAL # 8083; METHEMOGLOBIN 0.3 % (0-3); MODE CMV; O2 CONTENT 14.7 VOL% (18-24); OPERATOR ID 14382; PCO2 (CO2 TENSION) 33 MMHG (35-45); PO2 (O2 TENSION) 516 MMHG (79-93); SAMPLE Arterial; TIDAL VOLUME 550 ML; pH 7.53 (7.37-7.43)
[2016-11-24 16:53] LABS: BAND NEUTROPHILS 1 %; IMMATURE GRANS ABSOLUTE (CALC) 0.08 10/3/uL (0.0-0.11); LYMPHOCYTES 1 %; LYMPHOCYTES ABSOLUTE (CALC) 0.08 10/3/uL (0.67-4.30); MONOCYTES 5 %; MONOCYTES ABSOLUTE (CALC) 0.41 10/3/uL (0.21-1.20); MYELOCYTES 1 %; NEUTROPHILS ABSOLUTE (CALC) 7.63 10/3/uL (2.02-8.40); PLATELET ESTIMATE SLT DEC (ADEQUATE); SEGMENTED NEUTROPHIL (0) 92 %; TOTAL NUCLEATED CELLS 100
[2016-11-24 16:54] LABS: ANISOCYTOSIS 1+ (5-10/OIF) (0-5/OIF); POLYCHROMASIA 1+ (2-5/OIF) (0-1/OIF)
[2016-11-24 16:55] LABS: TOXIC GRANULATION SLT
[2016-11-24 17:12] LABS: PROCALCITONIN 0.27 ng/mL (<0.5)
[2016-11-24 21:01] LABS: FREE T4 0.89 NG/DL (0.76-1.46)
[2016-11-24 21:06] LABS: TROPONIN I 0.49 NG/ML (<0.05)
[2016-11-24 22:23] LABS: ASCORBIC ACID (UR NOT ORDER) NEG (NEG); BILIRUBIN, URINE NEGATIVE (NEG); KETONE, URINE NEGATIVE (NEG); LEUKOCYTE ESTERASE(NOT OR NEG (NEG); WBC (NOT ORDERED) (RFLEX) 1 (0-5)
[2016-11-25 00:07] LABS: HEMATOCRIT 25.6 % (40.0-51.0); HEMOGLOBIN 8.6 g/dL (13.6-17.8)
[2016-11-25 04:21] LABS: INTERNATIONAL NORMAL RATI 1.3 UNITS (-); PROTIME (NOT ORD) 15.6 SEC (12.0-14.5)
[2016-11-25 04:27] LABS: BASOPHILS 0.2 %; BASOPHILS ABSOLUTE 0.01 10/3/uL (0.0-0.16); EOSINOPHILS 0 %; HEMATOCRIT 26.6 % (40.0-51.0); HEMOGLOBIN 9.2 g/dL (13.6-17.8); IMMATURE GRANULOCYTES 0.8 %; IMMATURE GRANULOCYTES ABSOLUTE 0.05 10/3/uL (0.0-0.11); LYMPHOCYTES 1.4 %; LYMPHOCYTES ABSOLUTE 0.09 10/3/uL (0.67-4.30); MEAN CORPUS HGB CONC 34.6 g/dL (32.0-36.0); MEAN CORPUSCULAR HEMOGLOB 29.7 pg (26.0-34.0); MEAN CORPUSCULAR VOLUME 85.8 fL (80-100); MEAN PLATELET VOLUME 10.2 fL (9.2-13.0); MONOCYTES 8.9 %; MONOCYTES ABSOLUTE 0.57 10/3/uL (0.21-1.20); NEUTROPHILS 88.7 %; NEUTROPHILS ABSOLUTE 5.71 10/3/uL (2.02-8.40); NUCLEATED RED BLOOD CELLS 4.6 /100WBC (0-0); WHITE BLOOD CELLS 6.4 10/3/uL (4.5-10.5)
[2016-11-25 04:33] LABS: MANUAL DIFF NO %; PLATELET COUNT 142 10/3/uL (150-400)
[2016-11-25 04:37] LABS: CALCIUM, SERUM 7.5 MG/DL (8.5-10.4); CHLORIDE, SERUM 114 MMOL/L (96-112); CO2 (CARBON DIOXIDE) 25 MMOL/L (24-34); CREATININE 0.86 MG/DL (0.70-1.30); GFR AFRICAN AMERICAN 102 ML/MIN (>=60); GFR NON AFRICAN AMERICAN 88 ML/MIN (>=60); GLUCOSE, SERUM 128 MG/DL (60-99); POTASSIUM, SERUM 4.7 MMOL/L (3.5-5.3); SODIUM, SERUM 148 MMOL/L (135-148)
[2016-11-25 04:39] LABS: BUN (BLOOD UREA NITROGEN) 46 MG/DL (6-23); PHOSPHORUS, SERUM 1.6 MG/DL (2.5-4.5)
[2016-11-25 07:42] LABS: HEMATOCRIT 26.1 % (40.0-51.0); HEMOGLOBIN 8.7 g/dL (13.6-17.8)
[2016-11-25 07:43] LABS: BE (BASE EXCESS) 0.5 MEQ/L (0 +/- 2.5); CARBOXYHEMOGLOBIN 0.3 % (0-3); HCO3 (ACTUAL BICARBONATE) 23.5 MEQ/L (23-27); HEMOBLOGIN CONTENT 9.3 G/DL (14-18); INSTRUMENT SERIAL # 11843; METHEMOGLOBIN 0.9 % (0-3); MODE CMV; OPERATOR ID 334499; PCO2 (CO2 TENSION) 32 MMHG (35-45); PO2 (O2 TENSION) 150 MMHG (79-93); SAMPLE Arterial; TIDAL VOLUME 500 ML; pH 7.49 (7.37-7.43)
[2016-11-25 11:50] LABS: HEMATOCRIT 25.5 % (40.0-51.0); HEMOGLOBIN 8.3 g/dL (13.6-17.8)
[2016-11-25 16:58] LABS: HEMATOCRIT 26.3 % (40.0-51.0); HEMOGLOBIN 8.7 g/dL (13.6-17.8)
[2016-11-25 23:02] LABS: HEMATOCRIT 25.4 % (40.0-51.0); HEMOGLOBIN 8.1 g/dL (13.6-17.8)
[2016-11-26 03:57] LABS: HEMATOCRIT 26.6 % (40.0-51.0); HEMOGLOBIN 8.4 g/dL (13.6-17.8)
[2016-11-26 07:02] LABS: BUN (BLOOD UREA NITROGEN) 27 MG/DL (6-23); CHLORIDE, SERUM 119 MMOL/L (96-112); CO2 (CARBON DIOXIDE) 25 MMOL/L (24-34); CREATININE 0.69 MG/DL (0.70-1.30); GFR AFRICAN AMERICAN 111 ML/MIN (>=60); GFR NON AFRICAN AMERICAN 96 ML/MIN (>=60); GLUCOSE, SERUM 107 MG/DL (60-99); POTASSIUM, SERUM 3.9 MMOL/L (3.5-5.3); SODIUM, SERUM 153 MMOL/L (135-148)
[2016-11-26 07:15] LABS: INTERNATIONAL NORMAL RATI 1.2 UNITS (-); PROTIME (NOT ORD) 14.9 SEC (12.0-14.5)
[2016-11-26 10:34] LABS: HEMOGLOBIN 8.5 g/dL (13.6-17.8)
[2016-11-26 11:22] LABS: PREALBUMIN 13.4 MG/DL (17.0-43.0)
[2016-11-27 00:49] LABS: HEMATOCRIT 25.2 % (40.0-51.0); HEMOGLOBIN 8.1 g/dL (13.6-17.8)
[2016-11-27 05:19] LABS: CHLORIDE, SERUM 123 MMOL/L (96-112); CO2 (CARBON DIOXIDE) 27 MMOL/L (24-34); CREATININE 0.69 MG/DL (0.70-1.30); GFR AFRICAN AMERICAN 111 ML/MIN (>=60); GFR NON AFRICAN AMERICAN 96 ML/MIN (>=60); POTASSIUM, SERUM 3.6 MMOL/L (3.5-5.3)
[2016-11-27 05:28] LABS: BASOPHILS 0.2 %; BASOPHILS ABSOLUTE 0.01 10/3/uL (0.0-0.16); BUN (BLOOD UREA NITROGEN) 23 MG/DL (6-23); EOSINOPHILS 0 %; GLUCOSE, SERUM 156 MG/DL (60-99); HEMATOCRIT 26.3 % (40.0-51.0); IMMATURE GRANULOCYTES 0.4 %; IMMATURE GRANULOCYTES ABSOLUTE 0.02 10/3/uL (0.0-0.11); LYMPHOCYTES 4.3 %; LYMPHOCYTES ABSOLUTE 0.24 10/3/uL (0.67-4.30); MEAN CORPUSCULAR HEMOGLOB 28.3 pg (26.0-34.0); MEAN PLATELET VOLUME 9.9 fL (9.2-13.0); MONOCYTES 3.2 %; MONOCYTES ABSOLUTE 0.18 10/3/uL (0.21-1.20); NEUTROPHILS 91.9 %; NUCLEATED RED BLOOD CELLS 1.2 /100WBC (0-0); PHOSPHORUS, SERUM 1.8 MG/DL (2.5-4.5); RED CELL COUNT 2.83 10/6/uL (4.7-6.1); SODIUM, SERUM 158 MMOL/L (135-148); WHITE BLOOD CELLS 5.6 10/3/uL (4.5-10.5)
[2016-11-27 05:30] LABS: MANUAL DIFF NO %; MEAN CORPUS HGB CONC 30.4 g/dL (32.0-36.0); MEAN CORPUSCULAR VOLUME 92.9 fL (80-100); PLATELET COUNT 194 10/3/uL (150-400); RBC DISTRIBUTION WIDTH 21.9 % (12.0-16.0)
[2016-11-27 11:44] LABS: HEMATOCRIT 25.3 % (40.0-51.0); HEMOGLOBIN 7.9 g/dL (13.6-17.8)
[2016-11-27 14:49] LABS: HEMATOCRIT 25.3 % (40.0-51.0); HEMOGLOBIN 8.2 g/dL (13.6-17.8)
[2016-11-27 15:02] LABS: BUN (BLOOD UREA NITROGEN) 20 MG/DL (6-23); CALCIUM, SERUM 7.7 MG/DL (8.5-10.4); CHLORIDE, SERUM 121 MMOL/L (96-112); CO2 (CARBON DIOXIDE) 29 MMOL/L (24-34); CREATININE 0.67 MG/DL (0.70-1.30); GFR AFRICAN AMERICAN 113 ML/MIN (>=60); GFR NON AFRICAN AMERICAN 97 ML/MIN (>=60); GLUCOSE, SERUM 119 MG/DL (60-99); POTASSIUM, SERUM 3.4 MMOL/L (3.5-5.3); SODIUM, SERUM 156 MMOL/L (135-148)
[2016-11-27 20:17] LABS: HEMATOCRIT 23.8 % (40.0-51.0); HEMOGLOBIN 7.6 g/dL (13.6-17.8)
[2016-11-28 04:32] LABS: BASOPHILS 0 %; EOSINOPHILS 0.3 %; EOSINOPHILS ABSOLUTE 0.01 10/3/uL (0.0-0.53); HEMATOCRIT 23.3 % (40.0-51.0); HEMOGLOBIN 7.5 g/dL (13.6-17.8); IMMATURE GRANULOCYTES 0.3 %; IMMATURE GRANULOCYTES ABSOLUTE 0.01 10/3/uL (0.0-0.11); LYMPHOCYTES 3.9 %; LYMPHOCYTES ABSOLUTE 0.14 10/3/uL (0.67-4.30); MEAN CORPUSCULAR HEMOGLOB 30.4 pg (26.0-34.0); MEAN CORPUSCULAR VOLUME 94.3 fL (80-100); MEAN PLATELET VOLUME 9.4 fL (9.2-13.0); MONOCYTES 5.6 %; NEUTROPHILS 89.9 %; PLATELET COUNT 180 10/3/uL (150-400); RBC DISTRIBUTION WIDTH 21.5 % (12.0-16.0); RED CELL COUNT 2.47 10/6/uL (4.7-6.1); WHITE BLOOD CELLS 3.6 10/3/uL (4.5-10.5)
[2016-11-28 04:35] LABS: MANUAL DIFF NO %; MEAN CORPUS HGB CONC 32.2 g/dL (32.0-36.0)
[2016-11-28 04:44] LABS: A/G RATIO 0.8 (0.7-1.9); ALKALINE PHOSPHATASE 52 U/L (45-117); CALCIUM, SERUM 7.5 MG/DL (8.5-10.4); CHLORIDE, SERUM 113 MMOL/L (96-112); CO2 (CARBON DIOXIDE) 28 MMOL/L (24-34); CREATININE 0.56 MG/DL (0.70-1.30); GFR AFRICAN AMERICAN 121 ML/MIN (>=60); GFR NON AFRICAN AMERICAN 105 ML/MIN (>=60); GLOBULIN 2.4 G/DL (2.5-4.1); PHOSPHORUS, SERUM 2.3 MG/DL (2.5-4.5); POTASSIUM, SERUM 3.4 MMOL/L (3.5-5.3); SGOT(AST) 11 U/L (5-40); SGPT(ALT) 13 U/L (5-65); TOTAL BILIRUBIN 0.2 MG/DL (0-1.2); TOTAL PROTEIN 4.3 G/DL (6.0-8.5)
[2016-11-28 04:45] LABS: ALBUMIN 1.9 G/DL (3.5-5.0); BUN (BLOOD UREA NITROGEN) 14 MG/DL (6-23); GLUCOSE, SERUM 171 MG/DL (60-99); SODIUM, SERUM 148 MMOL/L (135-148)
[2016-11-28 04:57] LABS: PREALBUMIN 12.5 MG/DL (17.0-43.0)
[2016-11-28 16:35] LABS: HEMATOCRIT 23.3 % (40.0-51.0); HEMOGLOBIN 7.5 g/dL (13.6-17.8)
[2016-11-28 16:45] LABS: BUN (BLOOD UREA NITROGEN) 10 MG/DL (6-23); CALCIUM, SERUM 7.5 MG/DL (8.5-10.4); CHLORIDE, SERUM 108 MMOL/L (96-112); CO2 (CARBON DIOXIDE) 28 MMOL/L (24-34); CREATININE 0.45 MG/DL (0.70-1.30); GFR AFRICAN AMERICAN 133 ML/MIN (>=60); GFR NON AFRICAN AMERICAN 115 ML/MIN (>=60); GLUCOSE, SERUM 135 MG/DL (60-99); POTASSIUM, SERUM 3.4 MMOL/L (3.5-5.3); SODIUM, SERUM 143 MMOL/L (135-148)
[2016-11-29 06:38] LABS: BASOPHILS 0 %; EOSINOPHILS 0.3 %; EOSINOPHILS ABSOLUTE 0.01 10/3/uL (0.0-0.53); HEMATOCRIT 25.5 % (40.0-51.0); HEMOGLOBIN 8.1 g/dL (13.6-17.8); IMMATURE GRANULOCYTES 0.6 %; IMMATURE GRANULOCYTES ABSOLUTE 0.02 10/3/uL (0.0-0.11); LYMPHOCYTES 4.1 %; LYMPHOCYTES ABSOLUTE 0.13 10/3/uL (0.67-4.30); MEAN CORPUS HGB CONC 31.8 g/dL (32.0-36.0); MEAN CORPUSCULAR HEMOGLOB 29.1 pg (26.0-34.0); MEAN CORPUSCULAR VOLUME 91.7 fL (80-100); MEAN PLATELET VOLUME 8.5 fL (9.2-13.0); MONOCYTES 6.3 %; NEUTROPHILS 88.7 %; NEUTROPHILS ABSOLUTE 2.82 10/3/uL (2.02-8.40); PLATELET COUNT 194 10/3/uL (150-400); RBC DISTRIBUTION WIDTH 19.6 % (12.0-16.0); RED CELL COUNT 2.78 10/6/uL (4.7-6.1); WHITE BLOOD CELLS 3.2 10/3/uL (4.5-10.5)
[2016-11-29 06:39] LABS: MANUAL DIFF NO %
[2016-11-29 06:49] LABS: BUN (BLOOD UREA NITROGEN) 8 MG/DL (6-23); CALCIUM, SERUM 7.8 MG/DL (8.5-10.4); CHLORIDE, SERUM 107 MMOL/L (96-112); CO2 (CARBON DIOXIDE) 27 MMOL/L (24-34); CREATININE 0.51 MG/DL (0.70-1.30); GFR AFRICAN AMERICAN 126 ML/MIN (>=60); GFR NON AFRICAN AMERICAN 109 ML/MIN (>=60); GLUCOSE, SERUM 160 MG/DL (60-99); PHOSPHORUS, SERUM 2.6 MG/DL (2.5-4.5); POTASSIUM, SERUM 3.9 MMOL/L (3.5-5.3); SODIUM, SERUM 143 MMOL/L (135-148)
[2016-11-29 13:30] LABS: HEMATOCRIT 25.8 % (40.0-51.0); HEMOGLOBIN 8.1 g/dL (13.6-17.8)
[2016-11-29 20:01] LABS: HEMATOCRIT 25.7 % (40.0-51.0); HEMOGLOBIN 8.1 g/dL (13.6-17.8)
[2016-11-30 05:01] LABS: BASOPHILS 0 %; EOSINOPHILS 0.4 %; EOSINOPHILS ABSOLUTE 0.01 10/3/uL (0.0-0.53); HEMATOCRIT 27.3 % (40.0-51.0); HEMOGLOBIN 8.8 g/dL (13.6-17.8); IMMATURE GRANULOCYTES 0.7 %; IMMATURE GRANULOCYTES ABSOLUTE 0.02 10/3/uL (0.0-0.11); LYMPHOCYTES ABSOLUTE 0.11 10/3/uL (0.67-4.30); MEAN CORPUS HGB CONC 32.2 g/dL (32.0-36.0); MEAN CORPUSCULAR HEMOGLOB 29.6 pg (26.0-34.0); MEAN CORPUSCULAR VOLUME 91.9 fL (80-100); MONOCYTES 7.3 %; NEUTROPHILS 87.6 %; NEUTROPHILS ABSOLUTE 2.39 10/3/uL (2.02-8.40); PLATELET COUNT 228 10/3/uL (150-400); RBC DISTRIBUTION WIDTH 19.8 % (12.0-16.0); RED CELL COUNT 2.97 10/6/uL (4.7-6.1); WHITE BLOOD CELLS 2.7 10/3/uL (4.5-10.5)
[2016-11-30 05:10] LABS: MANUAL DIFF NO %
[2016-11-30 05:15] LABS: BUN (BLOOD UREA NITROGEN) 9 MG/DL (6-23); CALCIUM, SERUM 7.4 MG/DL (8.5-10.4); CHLORIDE, SERUM 107 MMOL/L (96-112); CO2 (CARBON DIOXIDE) 28 MMOL/L (24-34); CREATININE 0.48 MG/DL (0.70-1.30); GFR AFRICAN AMERICAN 129 ML/MIN (>=60); GFR NON AFRICAN AMERICAN 112 ML/MIN (>=60); SODIUM, SERUM 143 MMOL/L (135-148)
[2016-11-30 05:16] LABS: GLUCOSE, SERUM 124 MG/DL (60-99)
[2016-12-01 05:08] LABS: BASOPHILS 0 %; EOSINOPHILS 0.3 %; EOSINOPHILS ABSOLUTE 0.01 10/3/uL (0.0-0.53); HEMOGLOBIN 9.5 g/dL (13.6-17.8); IMMATURE GRANULOCYTES 1.1 %; IMMATURE GRANULOCYTES ABSOLUTE 0.04 10/3/uL (0.0-0.11); LYMPHOCYTES 7.6 %; LYMPHOCYTES ABSOLUTE 0.27 10/3/uL (0.67-4.30); MEAN CORPUS HGB CONC 31.5 g/dL (32.0-36.0); MEAN CORPUSCULAR HEMOGLOB 29.4 pg (26.0-34.0); MEAN CORPUSCULAR VOLUME 93.5 fL (80-100); MEAN PLATELET VOLUME 9.6 fL (9.2-13.0); MONOCYTES 4.5 %; MONOCYTES ABSOLUTE 0.16 10/3/uL (0.21-1.20); NEUTROPHILS 86.5 %; NEUTROPHILS ABSOLUTE 3.08 10/3/uL (2.02-8.40); PLATELET COUNT 293 10/3/uL (150-400); RBC DISTRIBUTION WIDTH 20.4 % (12.0-16.0); RED CELL COUNT 3.23 10/6/uL (4.7-6.1); WHITE BLOOD CELLS 3.6 10/3/uL (4.5-10.5)
[2016-12-01 05:11] LABS: HEMATOCRIT 30.2 % (40.0-51.0); MANUAL DIFF NO %
[2016-12-01 05:27] LABS: BUN (BLOOD UREA NITROGEN) 11 MG/DL (6-23); CALCIUM, SERUM 7.8 MG/DL (8.5-10.4); CHLORIDE, SERUM 109 MMOL/L (96-112); CO2 (CARBON DIOXIDE) 27 MMOL/L (24-34); CREATININE 0.56 MG/DL (0.70-1.30); GFR AFRICAN AMERICAN 121 ML/MIN (>=60); GFR NON AFRICAN AMERICAN 105 ML/MIN (>=60); GLUCOSE, SERUM 125 MG/DL (60-99); POTASSIUM, SERUM 4.4 MMOL/L (3.5-5.3); SODIUM, SERUM 143 MMOL/L (135-148)
[2017-01-21] MEDS ORDERED: LOP25 PO (15:28)
[2017-01-21] MEDS ORDERED: ACET500CAP PO (15:29)
== END 2016-12-02 18:03 | DRG 356 ==
LOC: MIC 15:40 → 4EA 11-28 19:38
PROVIDERS: Internal Medicine; Internal Medicine Pulmonary Disease; Nurse Practitioner Adult Health; Radiology Radiation Oncology
PROC: B4101ZZ Fluoroscopy of Abdominal Aorta using Low Osmolar Contrast (ICD-10-PCS; 2016-11-24)
PROC: [UNRECOGNIZED PROCEDURE] (2016-11-24)
PROC: 04L53DZ Occlusion of Superior Mesenteric Artery with Intraluminal Device, Percutaneous Approach (ICD-10-PCS; principal; 2016-11-25)
PROC: 02HV33Z Insertion of Infusion Device into Superior Vena Cava, Percutaneous Approach (ICD-10-PCS; 2016-11-25)
PROC: 4A02X4A Measurement of Cardiac Electrical Activity, Guidance, External Approach (ICD-10-PCS; 2016-11-25)
PROC: 0BH17EZ Insertion of Endotracheal Airway into Trachea, Via Natural or Artificial Opening (ICD-10-PCS; 2016-11-25)
DX: C15.5 Malignant neoplasm of lower third of esophagus (principal); J96.01 Acute respiratory failure with hypoxia; I46.9 Cardiac arrest, cause unspecified; R57.1 Hypovolemic shock; E43 Unspecified severe protein-calorie malnutrition; K92.2 Gastrointestinal hemorrhage, unspecified; A04.7 Enterocolitis due to Clostridium difficile; E87.0 Hyperosmolality and hypernatremia; D62 Acute posthemorrhagic anemia; Z68.1 Body mass index [BMI] 19.9 or less, adult; E78.5 Hyperlipidemia, unspecified; I10 Essential (primary) hypertension; Z87.891 Personal history of nicotine dependence
CPT/HCPCS: 31500; 31720; 36245; 36246; 36415; 36569; 36600; 37244; 71010; 74000; 75726; 75774; 77336; 77386; 80048; 80053; 81001; 82272; 82330; 82533; 82805; 83605; 83735; 84100; 84134; 84145; 84439; 84443; 84484; 85014; 85018; 85025; 85610; 85730; 86850; 86900; 86901; 86920; 87493; 87493-59; 87641; 92950; 93005; 94002; 94003; 94660; 97116-GP; 97162-GP; 99291; 99292; A9270-GY; C1751; C1769; C1887; C1894; C8924; C9113; G8978-CK-GP; G8979-CJ-GP; J0461; J1200; J2405; P9016; P9059; Q9957; Q9967

== ENCOUNTER 2016-12-13 13:12 | Inpatient (IN) | payer MEDICARE ==
--- NOTE | ~2016-12-13 | EGD ---
EGD REPORT [facility] [address] [address] NAME: PAVAN CHAVARRIA : 47 STATUS : ADM IN PAT#: [id number] AGE: 71 ADM/REG DATE : 12/13/16 MR#: [id number] REPORT SERV DATE: 12/18/16 DICTATED BY: CHRISTINA HAMMONDS III DATE: 12/18/16 REPORT STATUS : Draft TRANSCRIBED BY: [facility] DATE: 12/18/16 Endoscopy Center Patient Name: Pavan Chavarria Date of : 1945 Attending MD: CHRISTINA HAMMONDS III, MD Procedure Date No Time: 12/18/2016 Procedure: Upper GI endoscopy Indications: Acute post hemorrhagic anemia, Melena Referring MD: Sal Rodriguez Medicines: Propofol per Anesthesia Complications: No immediate complications. Procedure: Pre-Anesthesia Assessment: - ASA Grade Assessment: III - A patient with severe systemic disease. After obtaining informed consent, the endoscope was passed under direct vision. Throughout the procedure, the patient's blood pressure, pulse, and oxygen saturations were monitored continuously. The GIF H190 [id number] was introduced through the mouth, and advanced to the third part of duodenum. The upper GI endoscopy was accomplished with ease. The patient tolerated the procedure well. Findings: LA Grade D (one or more mucosal breaks involving at least 75% of esophageal circumference) esophagitis with no bleeding was found in the lower third of the esophagus. One non-bleeding cratered gastric ulcer with a visible vessel was found at the gastroesophageal junction and in the cardia. The lesion was 20 mm in largest dimension. Coagulation for bleeding prevention using bipolar probe was applied and the vessel was coagulated. The remained site was removed with resultant active arterial bleeding and hemostasis was achieved with further application of the gold probe. . Two non-bleeding cratered gastric ulcers with no stigmata of bleeding were found at the incisura. The largest lesion was 15 mm in largest dimension. The examined duodenum was normal. A medium-sized hiatus hernia was present. Impression: - LA Grade D chemo/radiation esophagitis. - Gastric ulcer containing visible vessel. - Gastric ulcers with clean base. - Normal examined duodenum. - Hiatus hernia. EGD REPORT [address] [address] NAME: PAVAN CHAVARRIA : 47 STATUS : ADM IN [facility]#: [id number] AGE: 71 ADM/REG DATE : 12/13/16 MR#: [id number] REPORT SERV DATE: 12/18/16 DICTATED BY: CHRISTINA HAMMONDS III DATE: 12/18/16 REPORT STATUS : Draft TRANSCRIBED BY: [employer] DATE: 12/18/16 Procedure Code(s): --- Professional --- 07860, Esophagogastroduodenoscopy, flexible, transoral; with control of bleeding, any method Diagnosis Code(s): --- Professional --- K20.8, Other esophagitis T66.XXXA, Radiation sickness, unspecified, initial encounter K25.4, Chronic or unspecified gastric ulcer with hemorrhage K25.9, Gastric ulcer, unspecified as acute or chronic, without hemorrhage or perforation K44.9, Diaphragmatic hernia without obstruction or gangrene D62, Acute posthemorrhagic anemia K92.1, Melena CPT copyright 2013 [employer]. All rights reserved. The codes documented in this report are preliminary and upon microsoft dynamics developer review may be revised to meet current compliance requirements. CHRISTINA HAMMONDS III, MD 12/18/2016 7:32 AM This report has been signed electronically. Number of Addenda: 0 Note Initiated On: 12/18/2016 6:26 AM Scope Withdrawal Time 0 hours 0 minutes 0 seconds [address] [place] [id number]
--- NOTE | ~2016-12-13 | HP ---
History And Physical [place] [id number] [place]. [address] NAME: RON MCKINNEY : 47 STATUS : ADM IN PAT#: [id number] AGE: 71 ADM/REG DATE : 12/13/16 MR#: [id number] REPORT SERV DATE: 12/13/16 DICTATED BY: TIAGO SANCHEZ DATE: 12/13/16 REPORT STATUS : Draft TRANSCRIBED BY: MODDonald DATE: 12/13/16 DATE OF ADMISSION: 12/13/2016 CHIEF COMPLAINT: Weakness and melena, sent from rehab. HISTORY OF PRESENT ILLNESS: This is a 71-year-old male, known to have a fungating esophageal tumor recently in the hospital in November for GI bleed. He states that he is at rehab and had noted that he was feeling a little bit weaker. Had some melena on Tuesday, no bowel movement yesterday and again a dark bowel movement today. At rehab, they checked his hemoglobin and it was approximately 5. On discharge from his last hospitalization, his hemoglobin was 9.5. The patient denies chest pain, shortness of breath, nausea or vomiting. He says he has occasionally had nausea in the past but nothing recent. REVIEW OF SYSTEMS: A full review of systems was obtained and negative with the exception of above HPI. ALLERGIES: NO KNOWN DRUG ALLERGIES. MEDICATIONS: Maalox p.r.n., Imodium p.r.n., probiotic, Tamiflu 75 mg daily, Compazine 10 mg daily and p.r.n., Flomax 0.4 daily, and vancomycin 125 mg p.o. every 48 hours. PAST MEDICAL HISTORY: History of hypertension; hyperlipidemia; BPH; history of esophageal cancer, currently tolerated very little of his induction chemo per Dr. Sarmiento. He had planned to have a possible surgery for his esophageal mass with Dr. Sosa after discharge from rehab. He also had a cardiac arrest last admission with return of spontaneous circulation after one round of CPR and epi approximately 2 minutes. SOCIAL HISTORY: Has an extensive history of smoking, quit in September when got diagnosed with his esophageal mass. Does not drink alcohol. He is . Currently at rehab. FAMILY HISTORY: Significant for colon cancer in his father and a brother who had lung cancer. PHYSICAL EXAMINATION: VITAL SIGNS: Temperature 98.2, blood pressure 115/62, pulse of 112, respiratory rate 14, saturating 98% on room air. GENERAL: This is a well-developed, well-nourished male, who appears in no acute distress. HEENT: Extraocular muscles are intact. Sclerae anicteric. Pupils equal, round, and reactive to light. He has does have conjunctiva pallor. LUNGS: Clear to auscultation without any appreciable wheezes, rales, or rhonchi. CARDIAC: Sinus tachycardia. No appreciable murmurs. ABDOMEN: Soft, nontender, and nondistended. No palpable masses. EXTREMITIES: Lower extremities are warm and well perfused with no edema. NEURO: Cranial nerves 2 through 12 are grossly intact. Face is symmetric. Tongue is midline. Speech is fluent. History And Physical [address] [address] NAME: RON MCKINNEY : 47 STATUS : ADM IN [facility]#: [id number] AGE: 71 ADM/REG DATE : 12/13/16 MR#: [id number] REPORT SERV DATE: 12/13/16 DICTATED BY: TIAGO SANCHEZ DATE: 12/13/16 REPORT STATUS : Draft TRANSCRIBED BY: SOLEDAD DATE: 12/13/16 IMAGING: None. White blood cell count 7.6, hemoglobin 5.2, platelet count of 238. BMP grossly unremarkable. ASSESSMENT AND PLAN: This is a 71-year-old male with known esophageal mass and previous history of bleeding, presenting with anemia and history of melena. 1. Upper GI bleed, likely due to esophageal mass. We will admit him to the hospital. He had 2 units of blood ordered at this time. We will have serial H and H, GI consultation. I will ask Gastroenterology to see if they can possibly do anything to slow the bleeding of the esophageal mass or search for other etiology. Also consult Dr. Sosa as he previously was planning an outpatient procedure for this esophageal mass to see if anything else needs to be done in the interim since he has had two hospitalizations for bleeding. 2. Esophageal cancer. The patient will be followed by Oncology. His outpatient oncologist is Dr. Sarmiento. He did not tolerate much of his preop chemo. 3. Anemia due to acute blood loss. Two units of blood have been ordered in the ER. We will continue to monitor with serial H and H. Given IV PPI for GI bleeding. 4. History of Clostridium difficile. We will continue p.o. vancomycin taper. 5. History of benign prostatic hypertrophy. Continue Flomax with parameters when the patient is able to take p.o. He will currently be n.p.o. given above GI bleed. 6. Intermittent nausea. Continue outpatient scheduled Compazine. DISPOSITION: We will admit as an inpatient. The patient will be admitted for defensive monitoring. There are no current IMCU beds open. He is hemodynamically stable and I have discussed this with the ER physician, both felt appropriate for a defensive monitoring bed. DNK/MODL Tiago Sanchez MD / [id number] CC: MD Sal Black M.D.
--- NOTE | ~2016-12-13 | EGD ---
EGD REPORT [facility] [address] [address] NAME: PAVAN CHAVARRIA : 47 STATUS : DIS IN PAT#: [id number] AGE: 71 ADM/REG DATE : 12/13/16 MR#: [id number] REPORT SERV DATE: 01/11/17 DICTATED BY: CHRISTINA HAMMONDS III DATE: 01/11/17 REPORT STATUS : Draft TRANSCRIBED BY: [facility] DATE: 01/11/17 Endoscopy Center Patient Name: Pavan Chavarria Date of : 1945 Attending MD: CHRISTINA HAMMONDS III, MD Procedure Date No Time: 12/18/2016 Procedure: Upper GI endoscopy Indications: Acute post hemorrhagic anemia, Melena Referring MD: Sal Rodriguez Medicines: Propofol per Anesthesia Complications: No immediate complications. Procedure: Pre-Anesthesia Assessment: - ASA Grade Assessment: III - A patient with severe systemic disease. After obtaining informed consent, the endoscope was passed under direct vision. Throughout the procedure, the patient's blood pressure, pulse, and oxygen saturations were monitored continuously. The GIF H190 [id number] was introduced through the mouth, and advanced to the third part of duodenum. The upper GI endoscopy was accomplished with ease. The patient tolerated the procedure well. Findings: LA Grade D (one or more mucosal breaks involving at least 75% of esophageal circumference) esophagitis with no bleeding was found in the lower third of the esophagus. One non-bleeding cratered gastric ulcer with a visible vessel was found at the gastroesophageal junction and in the cardia. The lesion was 20 mm in largest dimension. Coagulation for bleeding prevention using bipolar probe was applied and the vessel was coagulated. The remained site was removed with resultant active arterial bleeding and hemostasis was achieved with further application of the gold probe. . Two non-bleeding cratered gastric ulcers with no stigmata of bleeding were found at the incisura. The largest lesion was 15 mm in largest dimension. The examined duodenum was normal. A medium-sized hiatus hernia was present. Impression: - LA Grade D chemo/radiation esophagitis. - Gastric ulcer containing visible vessel. - Gastric ulcers with clean base. - Normal examined duodenum. - Hiatus hernia. EGD REPORT [address] [address] NAME: PAVAN CHAVARRIA : 47 STATUS : DIS IN PAT#: [id number] AGE: 71 ADM/REG DATE : 12/13/16 MR#: [id number] REPORT SERV DATE: 01/11/17 DICTATED BY: CHRISTINA HAMMONDS III DATE: 01/11/17 REPORT STATUS : Draft TRANSCRIBED BY: [employer] DATE: 01/11/17 Procedure Code(s): --- Professional --- 70815, Esophagogastroduodenoscopy, flexible, transoral; with control of bleeding, any method Diagnosis Code(s): --- Professional --- K20.8, Other esophagitis T66.XXXA, Radiation sickness, unspecified, initial encounter K25.4, Chronic or unspecified gastric ulcer with hemorrhage K25.9, Gastric ulcer, unspecified as acute or chronic, without hemorrhage or perforation K44.9, Diaphragmatic hernia without obstruction or gangrene D62, Acute posthemorrhagic anemia K92.1, Melena CPT copyright 2013 [employer]. All rights reserved. The codes documented in this report are preliminary and upon chain splitter review may be revised to meet current compliance requirements. CHRISTINA HAMMONDS III, MD 12/18/2016 7:32 AM This report has been signed electronically. Number of Addenda: 0 Note Initiated On: 12/18/2016 6:26 AM Scope Withdrawal Time 0 hours 0 minutes 0 seconds [address] [place] [address]
--- NOTE | ~2016-12-13 | EGD ---
EGD REPORT [facility] [address] [place]. [address] NAME: PAVAN CHAVARRIA : [birth year] STATUS : ADM IN PAT#: [id number] AGE: 71 ADM/REG DATE : 12/13/16 MR#: [id number] REPORT SERV DATE: 12/14/16 DICTATED BY: RAYMOND ZHU DATE: 12/14/16 REPORT STATUS : Draft [facility]ANSCRIBED [facility]: [facility] DATE: 12/14/16 Endoscopy Center Patient Name: Pavan Chavarria Date of : 1945 Attending MD: RAYMOND ZHU MD Procedure Date No Time: 12/14/2016 Procedure: Upper GI endoscopy Indications: Melena Referring MD: Sal Rodriguez Medicines: Monitored Anesthesia Care Complications: No immediate complications. Estimated blood loss: Minimal. Procedure: Pre-Anesthesia Assessment: - ASA Grade Assessment: IV - A patient with severe systemic disease that is a constant threat to life. - After reviewing the risks and benefits, the patient was deemed in satisfactory condition to undergo the procedure. After obtaining informed consent, the endoscope was passed under direct vision. Throughout the procedure, the patient's blood pressure, pulse, and oxygen saturations were monitored continuously. The GIF [id number] was introduced through the mouth, and advanced to the second part of duodenum. The upper GI endoscopy was accomplished without difficulty. The patient tolerated the procedure well. Findings: LA Grade D (one or more mucosal breaks involving at least 75% of esophageal circumference) esophagitis with no bleeding was found in the lower third of the esophagus. Three non-bleeding cratered gastric ulcers with no stigmata of bleeding were found in the cardia and on the anterior wall of the gastric body. The largest lesion was 10 mm in largest dimension. Biopsies were taken with a cold forceps for Helicobacter pylori testing. Estimated blood loss was minimal. The examined duodenum was normal. The exam was otherwise without abnormality. Impression: - LA Grade D esophagitis. - Gastric ulcers with clean base. Biopsied. - The examination was otherwise normal. Recommendation: - Return patient to hospital [facility] for ongoing care. - Await pathology results. EGD REPORT [address] [address] NAME: PAVAN CHAVARRIA : [birth year] STATUS : ADM IN [facility]#: [id number] AGE: 71 ADM/REG DATE : 12/13/16 MR#: [id number] REPORT SERV DATE: 12/14/16 DICTATED BY: RAYMOND ZHU DATE: 12/14/16 REPORT STATUS : Draft TRANSCRIBED BY: [employer] DATE: 12/14/16 - Use Protonix (pantoprazole) 40 mg PO BID for 3 months. - Return to GI clinic in 3 months. Procedure Code(s): --- Professional --- 53092, Esophagogastroduodenoscopy, flexible, transoral; with biopsy, single or multiple Diagnosis Code(s): --- Professional --- K20.9, Esophagitis, unspecified K25.9, Gastric ulcer, unspecified as acute or chronic, without hemorrhage or perforation K92.1, Melena CPT copyright 2013 [employer]. All rights reserved. The codes documented in this report are preliminary and upon medical records coder review may be revised to meet current compliance requirements. Raymond Zhu MD RAYMOND ZHU MD 12/14/2016 10:46 AM This report has been signed electronically. Number of Addenda: 0 Note Initiated On: 12/14/2016 10:06 AM Scope Withdrawal Time 0 hours 0 minutes 0 seconds [address] [place] [address]
--- NOTE | ~2016-12-13 | CN ---
Consultation Report [facility] [address] [place]. [address] NAME: RON CHAVARRIA : [birth year] STATUS : ADM IN PAT#: [id number] AGE: 71 ADM/REG DATE : 12/13/16 MR#: [id number] REPORT SERV DATE: 12/14/16 DICTATED BY: PAUL CORREA DATE: 12/14/16 REPORT STATUS : Draft TRANSCRIBED BY: MODL DATE: 12/14/16 GI CONSULTATION DATE OF CONSULTATION: 12/14/2016 REASON FOR CONSULTATION: Evaluation and management of GI bleeding, acute blood loss anemia, and known esophageal mass. HISTORY OF PRESENT ILLNESS: Mr. Chavarria is a 71-year-old male patient, who has a known history of esophageal cancer status post J-tube placement, was seen by Dr. Rodriguez on 11/25/2016 for upper GI bleeding, as well as acute blood loss anemia. He had previously been undergoing chemo and XRT. During his November admission, he had become unresponsive requiring CPR. He was intubated for airway protection, was stabilized and placed on Levophed. He underwent angiography and embolization of a blood vessel feeding his esophagus per reports. His last EGD was on 10/15/2016, actually that was an endoscopic ultrasound with Dr. Wray showing a partially obstructing esophageal tumor in the lower third of the esophagus at the GE junction, normal duodenum, masses were found in the lower third of the esophagus, staged a T3 N1. He has being seen by Oncology. At this point in time, by reports it appears he did not tolerate his preop chemotherapy well. He was to see Dr. Sosa for surgical evaluation at some point in time. He has been assessed by him, but potentially waiting on EGD findings. I have discussed with the patient as well as family at the bedside. We will pursue EGD, but however unsure of what can be offered. We will make further recommendations after endoscopic evaluation has been completed. He did come in with a hemoglobin of 5.1. He has been transfused with hemoglobin presently of 8.8. He admits to black tarry stools for the last four days. He states that he has already had two tarry stools this morning. He has not had any true abdominal pain. No nausea or vomiting. PAST MEDICAL HISTORY: Pertinent for hypertension, hyperlipidemia, BPH, and esophageal cancer. Currently, he has been undergoing induction chemo, but poor tolerance, and he is undergoing surgical evaluation with Dr. Sosa after discharge from rehab facility. Cardiac arrest status post CPR in November 2016. FAMILY HISTORY: Positive for colon cancer. SOCIAL HISTORY: Positive for tobacco, but cessation in September. Denies alcohol or illicits. ALLERGIES: NO KNOWN ALLERGIES. HOME MEDICATIONS: Consist of; Flomax, Lopressor, Norvasc, Compazine, vancomycin, Imodium, probiotic, and Maalox. REVIEW OF SYSTEMS: A 10-point review of systems has been obtained with pertinent positives being addressed in the history of present illness. Consultation Report [place] [id number] [facility] [place]. [address] NAME: RON CHAVARRIA : [birth year] STATUS : ADM IN [facility]#: [id number] AGE: 71 ADM/REG DATE : 12/13/16 MR#: [id number] REPORT SERV DATE: 12/14/16 DICTATED BY: PAUL CORREA DATE: 12/14/16 REPORT STATUS : Draft TRANSCRIBED BY: SOLEDAD DATE: 12/14/16 PHYSICAL EXAMINATION: VITAL SIGNS: Temperature 99.2, pulse 93, respirations 16, and blood pressure is 125/70. NEUROLOGIC: Reveals an alert, frail male, resting in bed with no focal deficits. GENERAL: Cooperative, in no apparent distress. Awake, alert and oriented x3. HEAD, EARS, EYES, NOSE, AND THROAT: Anicteric. Pupils are equal, round, and reactive to light and accommodation. Normocephalic and atraumatic. NECK: No JVD. No palpable nodes. LUNGS: Diminished throughout. Normal respiratory effort exhibited. CARDIOVASCULAR SYSTEM: Regular rate and rhythm. ABDOMEN: Soft, flat. PEG tube noted with no redness or infection indications at the site. EXTREMITIES: No edema. Normal distal pulses. SKIN: Warm, dry, and intact. PERTINENT LABORATORY DATA: Sodium is 140, potassium 4.3, BUN is 24, and creatinine 0.46. White count 7.9, hemoglobin 8.8, hematocrit 26, and platelet count 168. INR 1.1. No imaging was obtained in this hospitalization. ASSESSMENT: 1. Upper gastrointestinal bleed, likely secondary to esophageal mass. 2. Acute blood loss anemia status post transfusion with improvement. 3. History of esophageal cancer, undergoing rehab with potential for surgical intervention. 4. History of Clostridium difficile. PLAN: 1. EGD today. I am; however, unsure if or what can be done endoscopically for esophageal mass bleeding, but we will assess, and make recommendations at the time of endoscopy. 2. Follow H and H, and transfuse as needed. 3. Tube feeding recommendations per Nutrition. 4. Add PPI drip. 5. Continue vancomycin. JAY/MODDonald Paul CONCETTA Mcdowell / [id number] CC: MD Sal Black M.D.
--- NOTE | ~2016-12-13 | DS ---
Discharge Summary [facility] [address] [place]. [address] NAME: RON MCKINNEY : [birth year] STATUS : DIS IN PAT#: [id number] AGE: 71 ADM/REG DATE : 12/13/16 MR#: [id number] REPORT SERV DATE: 12/21/16 DICTATED BY: CESAR SU II DATE: 12/20/16 REPORT STATUS : Draft TRANSCRIBED BY: MODL DATE: 12/20/16 ADMISSION DATE: 12/13/2016 DISCHARGE DATE: 12/20/2016 DISCHARGE DIAGNOSES: 1. Upper gastrointestinal bleed secondary to gastric ulcers and esophagitis. 2. Acute blood loss anemia. 3. Esophageal cancer. 4. History of Clostridium difficile. 5. Generalized debility. 6. History of BPH. CONSULTS: 1. Raymond Rodriguez MD. 2. Amalia Wood M.D., GI. 3. Ryan Sosa M.D., Surgery. 4. Magi Mario M.D., with Oncology. BRIEF HISTORY OF PRESENT ILLNESS: The patient is a 71-year-old male with the above history, who presented to [facility] due to weakness and melena. For detailed history and physical examination, please see Dr. Roni Sanchez's note from 12/13/2016. HOSPITAL COURSE: On admission, the patient's hemoglobin was 5, and he was transfused. GI was consulted and initial EGD showed grade D esophagitis with gastric ulcers with a clean base. No obvious bleeding. The patient was monitored after the endoscopy, continued to have persistent melena and hemoglobin slowly declined again. A followup EGD showed again esophagitis with no bleeding in the esophagus. There was one nonbleeding cratered gastric ulcer with a visible vessel found at the GE junction in the cardia. This was cauterized. Otherwise, 2 nonbleeding cratered gastric ulcers with no stigmata of bleeding. After the second EGD, the patient's melena resolved, his hemoglobin remained stable, and required no further transfusions. Dr. Sosa intermittently checked on the patient and is continuing his plan of surgery in two weeks. At this point, the patient is stable for discharge. DISCHARGE MEDICATIONS: 1. Compazine 10 mg p.o. daily. 2. Compazine 10 mg q.4 hours p.r.n. nausea. 3. Flomax 0.4 mg p.o. daily. 4. Imodium p.r.n. 5. Probiotic daily. 6. Maalox p.r.n. 7. Protonix 40 mg p.o. b.i.d. DISCHARGE INSTRUCTIONS: The patient will follow up with Dr. Mario in one to two weeks. Otherwise, follow up with Dr. Sosa in two weeks. Discharge Summary [address] [address] NAME: RON MCKINNEY : [birth year] STATUS : DIS IN PAT#: [id number] AGE: 71 ADM/REG DATE : 12/13/16 MR#: [id number] REPORT SERV DATE: 12/21/16 DICTATED BY: CESAR SU II DATE: 12/20/16 REPORT STATUS : Draft TRANSCRIBED BY: SOLEDAD DATE: 12/20/16 ALVARO/SOLEDAD Cesar Su II, MD / [id number] CC: MD Sal Ray II, M.D.
[2016-12-13 10:49] LABS: BASOPHILS 0.1 %; BASOPHILS ABSOLUTE 0.01 10/3/uL (0.0-0.16); EOSINOPHILS 0 %; IMMATURE GRANULOCYTES 2.1 %; IMMATURE GRANULOCYTES ABSOLUTE 0.15 10/3/uL (0.0-0.11); LYMPHOCYTES 6.5 %; LYMPHOCYTES ABSOLUTE 0.47 10/3/uL (0.67-4.30); MEAN CORPUS HGB CONC 32.5 g/dL (32.0-36.0); MEAN CORPUSCULAR HEMOGLOB 30.7 pg (26.0-34.0); MEAN CORPUSCULAR VOLUME 94.6 fL (80-100); MEAN PLATELET VOLUME 8.3 fL (9.2-13.0); MONOCYTES ABSOLUTE 0.29 10/3/uL (0.21-1.20); NEUTROPHILS 87.3 %; NEUTROPHILS ABSOLUTE 6.36 10/3/uL (2.02-8.40); PLATELET COUNT 236 10/3/uL (150-400); RBC DISTRIBUTION WIDTH 21.4 % (12.0-16.0)
[2016-12-13 10:51] LABS: HEMATOCRIT 15.7 % (40.0-51.0); HEMOGLOBIN 5.1 g/dL (13.6-17.8); RED CELL COUNT 1.66 10/6/uL (4.7-6.1); WHITE BLOOD CELLS 7.3 10/3/uL (4.5-10.5)
[2016-12-13 10:53] LABS: MANUAL DIFF NO %
[2016-12-13 10:59] LABS: BUN (BLOOD UREA NITROGEN) 15 MG/DL (6-23); CALCIUM, SERUM 7.8 MG/DL (8.5-10.4); CHLORIDE, SERUM 97 MMOL/L (96-112); CO2 (CARBON DIOXIDE) 27 MMOL/L (24-34); CREATININE 0.48 MG/DL (0.70-1.30); GFR AFRICAN AMERICAN 129 ML/MIN (>=60); GFR NON AFRICAN AMERICAN 112 ML/MIN (>=60); GLUCOSE, SERUM 128 MG/DL (60-99)
[2016-12-13 11:03] LABS: SODIUM, SERUM 135 MMOL/L (135-148)
[2016-12-13 12:23] LABS: BASOPHILS 0.1 %; BASOPHILS ABSOLUTE 0.01 10/3/uL (0.0-0.16); EOSINOPHILS 0 %; IMMATURE GRANULOCYTES ABSOLUTE 0.23 10/3/uL (0.0-0.11); LYMPHOCYTES 8.4 %; LYMPHOCYTES ABSOLUTE 0.64 10/3/uL (0.67-4.30); MEAN CORPUS HGB CONC 31.1 g/dL (32.0-36.0); MEAN CORPUSCULAR HEMOGLOB 29.5 pg (26.0-34.0); MEAN CORPUSCULAR VOLUME 94.9 fL (80-100); MEAN PLATELET VOLUME 8.2 fL (9.2-13.0); MONOCYTES 3.4 %; MONOCYTES ABSOLUTE 0.26 10/3/uL (0.21-1.20); NEUTROPHILS 85.1 %; NEUTROPHILS ABSOLUTE 6.46 10/3/uL (2.02-8.40); PLATELET COUNT 238 10/3/uL (150-400); RBC DISTRIBUTION WIDTH 21.5 % (12.0-16.0); RED CELL COUNT 1.76 10/6/uL (4.7-6.1); WHITE BLOOD CELLS 7.6 10/3/uL (4.5-10.5)
[2016-12-13 12:26] LABS: HEMATOCRIT 16.7 % (40.0-51.0); HEMOGLOBIN 5.2 g/dL (13.6-17.8); MANUAL DIFF NO %
[2016-12-13 12:34] LABS: INTERNATIONAL NORMAL RATI 1.1 UNITS (-); PARTIAL THROMBO TIME 29.3 SEC (22.5-37.2); PROTIME (NOT ORD) 14.1 SEC (12.0-14.5)
[2016-12-13 12:42] LABS: A/G RATIO 0.8 (0.7-1.9); ALBUMIN 2.4 G/DL (3.5-5.0); ALKALINE PHOSPHATASE 65 U/L (45-117); BUN (BLOOD UREA NITROGEN) 13 MG/DL (6-23); CALCIUM, SERUM 8.3 MG/DL (8.5-10.4); CHLORIDE, SERUM 98 MMOL/L (96-112); CO2 (CARBON DIOXIDE) 29 MMOL/L (24-34); CREATININE 0.45 MG/DL (0.70-1.30); GFR AFRICAN AMERICAN 133 ML/MIN (>=60); GFR NON AFRICAN AMERICAN 115 ML/MIN (>=60); GLUCOSE, SERUM 117 MG/DL (60-99); POTASSIUM, SERUM 4.2 MMOL/L (3.5-5.3); SGOT(AST) 13 U/L (5-40); SGPT(ALT) 9 U/L (5-65); SODIUM, SERUM 135 MMOL/L (135-148); TOTAL BILIRUBIN 0.2 MG/DL (0-1.2); TOTAL PROTEIN 5.4 G/DL (6.0-8.5)
[2016-12-13] MEDS ORDERED: TAMIFLU PO (13:46)
[2016-12-13] MEDS ORDERED: COMP10B PO (13:51)
[2016-12-14 01:18] LABS: BASOPHILS 0.1 %; BASOPHILS ABSOLUTE 0.01 10/3/uL (0.0-0.16); EOSINOPHILS 0.1 %; EOSINOPHILS ABSOLUTE 0.01 10/3/uL (0.0-0.53); IMMATURE GRANULOCYTES 1.7 %; IMMATURE GRANULOCYTES ABSOLUTE 0.13 10/3/uL (0.0-0.11); LYMPHOCYTES 2.5 %; MEAN CORPUSCULAR HEMOGLOB 30.3 pg (26.0-34.0); MEAN PLATELET VOLUME 8.6 fL (9.2-13.0); MONOCYTES 9.4 %; MONOCYTES ABSOLUTE 0.74 10/3/uL (0.21-1.20); NEUTROPHILS 86.2 %; NEUTROPHILS ABSOLUTE 6.76 10/3/uL (2.02-8.40); PLATELET COUNT 168 10/3/uL (150-400); RBC DISTRIBUTION WIDTH 17.6 % (12.0-16.0); WHITE BLOOD CELLS 7.9 10/3/uL (4.5-10.5)
[2016-12-14 01:20] LABS: HEMOGLOBIN 8.8 g/dL (13.6-17.8); MANUAL DIFF NO %; MEAN CORPUS HGB CONC 33.8 g/dL (32.0-36.0); MEAN CORPUSCULAR VOLUME 89.7 fL (80-100)
[2016-12-14 01:46] LABS: CALCIUM, SERUM 7.6 MG/DL (8.5-10.4); CHLORIDE, SERUM 104 MMOL/L (96-112); CO2 (CARBON DIOXIDE) 30 MMOL/L (24-34); CREATININE 0.46 MG/DL (0.70-1.30); GFR AFRICAN AMERICAN 132 ML/MIN (>=60); GFR NON AFRICAN AMERICAN 114 ML/MIN (>=60); GLUCOSE, SERUM 100 MG/DL (60-99); POTASSIUM, SERUM 4.3 MMOL/L (3.5-5.3); SODIUM, SERUM 140 MMOL/L (135-148)
[2016-12-14 01:48] LABS: BUN (BLOOD UREA NITROGEN) 24 MG/DL (6-23)
[2016-12-14 12:07] LABS: HEMATOCRIT 27.1 % (40.0-51.0); HEMOGLOBIN 9.1 g/dL (13.6-17.8)
[2016-12-15 06:24] LABS: BASOPHILS 0.2 %; BASOPHILS ABSOLUTE 0.01 10/3/uL (0.0-0.16); EOSINOPHILS 0.2 %; EOSINOPHILS ABSOLUTE 0.01 10/3/uL (0.0-0.53); HEMATOCRIT 26.1 % (40.0-51.0); HEMOGLOBIN 8.6 g/dL (13.6-17.8); IMMATURE GRANULOCYTES 1.4 %; IMMATURE GRANULOCYTES ABSOLUTE 0.07 10/3/uL (0.0-0.11); LYMPHOCYTES 7.7 %; LYMPHOCYTES ABSOLUTE 0.38 10/3/uL (0.67-4.30); MEAN CORPUSCULAR HEMOGLOB 30.5 pg (26.0-34.0); MEAN PLATELET VOLUME 8.6 fL (9.2-13.0); MONOCYTES 2.4 %; MONOCYTES ABSOLUTE 0.12 10/3/uL (0.21-1.20); NEUTROPHILS 88.1 %; NEUTROPHILS ABSOLUTE 4.37 10/3/uL (2.02-8.40); PLATELET COUNT 182 10/3/uL (150-400); RBC DISTRIBUTION WIDTH 19.4 % (12.0-16.0); RED CELL COUNT 2.82 10/6/uL (4.7-6.1)
[2016-12-15 06:32] LABS: MANUAL DIFF NO %; MEAN CORPUSCULAR VOLUME 92.6 fL (80-100)
[2016-12-15 06:33] LABS: CALCIUM, SERUM 7.8 MG/DL (8.5-10.4); CHLORIDE, SERUM 106 MMOL/L (96-112); CO2 (CARBON DIOXIDE) 26 MMOL/L (24-34); GFR AFRICAN AMERICAN 127 ML/MIN (>=60); GFR NON AFRICAN AMERICAN 110 ML/MIN (>=60); POTASSIUM, SERUM 3.8 MMOL/L (3.5-5.3); SODIUM, SERUM 141 MMOL/L (135-148)
[2016-12-15 06:34] LABS: BUN (BLOOD UREA NITROGEN) 16 MG/DL (6-23); GLUCOSE, SERUM 144 MG/DL (60-99)
[2016-12-16 05:19] LABS: BASOPHILS 0.3 %; BASOPHILS ABSOLUTE 0.01 10/3/uL (0.0-0.16); EOSINOPHILS 0.5 %; EOSINOPHILS ABSOLUTE 0.02 10/3/uL (0.0-0.53); HEMATOCRIT 26.1 % (40.0-51.0); HEMOGLOBIN 8.3 g/dL (13.6-17.8); IMMATURE GRANULOCYTES 0.8 %; IMMATURE GRANULOCYTES ABSOLUTE 0.03 10/3/uL (0.0-0.11); LYMPHOCYTES 8.9 %; LYMPHOCYTES ABSOLUTE 0.35 10/3/uL (0.67-4.30); MEAN CORPUS HGB CONC 31.8 g/dL (32.0-36.0); MEAN CORPUSCULAR HEMOGLOB 30.4 pg (26.0-34.0); MEAN PLATELET VOLUME 9.1 fL (9.2-13.0); MONOCYTES 4.6 %; MONOCYTES ABSOLUTE 0.18 10/3/uL (0.21-1.20); NEUTROPHILS 84.9 %; NEUTROPHILS ABSOLUTE 3.34 10/3/uL (2.02-8.40); PLATELET COUNT 188 10/3/uL (150-400); RBC DISTRIBUTION WIDTH 19.8 % (12.0-16.0); RED CELL COUNT 2.73 10/6/uL (4.7-6.1); WHITE BLOOD CELLS 3.9 10/3/uL (4.5-10.5)
[2016-12-16 05:20] LABS: MANUAL DIFF NO %; MEAN CORPUSCULAR VOLUME 95.6 fL (80-100)
[2016-12-17 04:11] LABS: BASOPHILS 0 %; EOSINOPHILS 0.2 %; EOSINOPHILS ABSOLUTE 0.01 10/3/uL (0.0-0.53); IMMATURE GRANULOCYTES 0.7 %; IMMATURE GRANULOCYTES ABSOLUTE 0.03 10/3/uL (0.0-0.11); LYMPHOCYTES 5.7 %; LYMPHOCYTES ABSOLUTE 0.26 10/3/uL (0.67-4.30); MEAN CORPUS HGB CONC 31.5 g/dL (32.0-36.0); MEAN CORPUSCULAR HEMOGLOB 30.4 pg (26.0-34.0); MEAN CORPUSCULAR VOLUME 96.5 fL (80-100); MEAN PLATELET VOLUME 9.1 fL (9.2-13.0); MONOCYTES 4.6 %; MONOCYTES ABSOLUTE 0.21 10/3/uL (0.21-1.20); NEUTROPHILS 88.8 %; NEUTROPHILS ABSOLUTE 4.08 10/3/uL (2.02-8.40); PLATELET COUNT 206 10/3/uL (150-400); RBC DISTRIBUTION WIDTH 19.6 % (12.0-16.0); WHITE BLOOD CELLS 4.6 10/3/uL (4.5-10.5)
[2016-12-17 04:12] LABS: HEMATOCRIT 22.2 % (40.0-51.0); MANUAL DIFF NO %
[2016-12-17 22:26] LABS: HEMATOCRIT 26.2 % (40.0-51.0); HEMOGLOBIN 8.7 g/dL (13.6-17.8)
[2016-12-18 04:37] LABS: BASOPHILS 0.2 %; BASOPHILS ABSOLUTE 0.01 10/3/uL (0.0-0.16); EOSINOPHILS 0.4 %; EOSINOPHILS ABSOLUTE 0.02 10/3/uL (0.0-0.53); HEMATOCRIT 25.9 % (40.0-51.0); HEMOGLOBIN 8.4 g/dL (13.6-17.8); IMMATURE GRANULOCYTES 0.9 %; IMMATURE GRANULOCYTES ABSOLUTE 0.04 10/3/uL (0.0-0.11); LYMPHOCYTES 10.6 %; LYMPHOCYTES ABSOLUTE 0.48 10/3/uL (0.67-4.30); MEAN CORPUS HGB CONC 32.4 g/dL (32.0-36.0); MEAN CORPUSCULAR HEMOGLOB 29.6 pg (26.0-34.0); MONOCYTES ABSOLUTE 0.09 10/3/uL (0.21-1.20); NEUTROPHILS 85.9 %; PLATELET COUNT 175 10/3/uL (150-400); RBC DISTRIBUTION WIDTH 19.4 % (12.0-16.0); WHITE BLOOD CELLS 4.5 10/3/uL (4.5-10.5)
[2016-12-18 04:39] LABS: MANUAL DIFF NO %; MEAN CORPUSCULAR VOLUME 91.2 fL (80-100); RED CELL COUNT 2.84 10/6/uL (4.7-6.1)
[2016-12-18 04:46] LABS: INTERNATIONAL NORMAL RATI 1.2 UNITS (-); PROTIME (NOT ORD) 15.2 SEC (12.0-14.5)
[2016-12-18 04:50] LABS: BUN (BLOOD UREA NITROGEN) 19 MG/DL (6-23); CALCIUM, SERUM 7.7 MG/DL (8.5-10.4); CHLORIDE, SERUM 109 MMOL/L (96-112); CO2 (CARBON DIOXIDE) 26 MMOL/L (24-34); GFR AFRICAN AMERICAN 127 ML/MIN (>=60); GFR NON AFRICAN AMERICAN 110 ML/MIN (>=60); POTASSIUM, SERUM 4.1 MMOL/L (3.5-5.3); SODIUM, SERUM 142 MMOL/L (135-148)
[2016-12-18 04:55] LABS: GLUCOSE, SERUM 104 MG/DL (60-99)
[2016-12-18 17:03] LABS: HEMOGLOBIN 8.1 g/dL (13.6-17.8)
[2016-12-19 04:25] LABS: HEMOGLOBIN 8.3 g/dL (13.6-17.8)
[2016-12-19 15:51] LABS: HEMATOCRIT 24.4 % (40.0-51.0); HEMOGLOBIN 7.9 g/dL (13.6-17.8)
[2016-12-20 05:15] LABS: BASOPHILS 0.3 %; BASOPHILS ABSOLUTE 0.01 10/3/uL (0.0-0.16); EOSINOPHILS 0.6 %; EOSINOPHILS ABSOLUTE 0.02 10/3/uL (0.0-0.53); HEMOGLOBIN 8.6 g/dL (13.6-17.8); IMMATURE GRANULOCYTES 0.8 %; IMMATURE GRANULOCYTES ABSOLUTE 0.03 10/3/uL (0.0-0.11); LYMPHOCYTES 10.6 %; LYMPHOCYTES ABSOLUTE 0.38 10/3/uL (0.67-4.30); MEAN CORPUS HGB CONC 33.1 g/dL (32.0-36.0); MEAN CORPUSCULAR HEMOGLOB 30.6 pg (26.0-34.0); MEAN CORPUSCULAR VOLUME 92.5 fL (80-100); MEAN PLATELET VOLUME 8.6 fL (9.2-13.0); MONOCYTES 4.5 %; MONOCYTES ABSOLUTE 0.16 10/3/uL (0.21-1.20); NEUTROPHILS 83.2 %; NEUTROPHILS ABSOLUTE 2.98 10/3/uL (2.02-8.40); PLATELET COUNT 216 10/3/uL (150-400); RBC DISTRIBUTION WIDTH 18.8 % (12.0-16.0); RED CELL COUNT 2.81 10/6/uL (4.7-6.1); WHITE BLOOD CELLS 3.6 10/3/uL (4.5-10.5)
[2016-12-20 05:21] LABS: MANUAL DIFF NO %
[2016-12-20 05:22] LABS: CALCIUM, SERUM 7.7 MG/DL (8.5-10.4); CHLORIDE, SERUM 103 MMOL/L (96-112); CO2 (CARBON DIOXIDE) 28 MMOL/L (24-34); CREATININE 0.42 MG/DL (0.70-1.30); GFR AFRICAN AMERICAN 137 ML/MIN (>=60); GFR NON AFRICAN AMERICAN 118 ML/MIN (>=60); GLUCOSE, SERUM 108 MG/DL (60-99); POTASSIUM, SERUM 3.6 MMOL/L (3.5-5.3); SODIUM, SERUM 140 MMOL/L (135-148)
[2016-12-20 05:26] LABS: BUN (BLOOD UREA NITROGEN) 10 MG/DL (6-23)
[2016-12-20] MEDS ORDERED: PROTONIX PO (12:07)
[2017-01-21] MEDS ORDERED: LOP25 PO (15:28)
[2017-01-21] MEDS ORDERED: ACET500CAP PO (15:29)
== END 2016-12-20 14:03 | disposition home health service (06) | DRG 380 ==
LOC: ER 13:12 → 4EA 14:47
PROVIDERS: Emergency Medicine; Internal Medicine; Internal Medicine Gastroenterology; Nurse Practitioner Family; Physical Medicine & Rehabilitation
PROC: 0DB68ZX Excision of Stomach, Via Natural or Artificial Opening Endoscopic, Diagnostic (ICD-10-PCS; principal; 2016-12-13)
PROC: 30233N1 Transfusion of Nonautologous Red Blood Cells into Peripheral Vein, Percutaneous Approach (ICD-10-PCS; 2016-12-13)
PROC: 0W3P8ZZ Control Bleeding in Gastrointestinal Tract, Via Natural or Artificial Opening Endoscopic (ICD-10-PCS; 2016-12-18)
DX: K22.11 Ulcer of esophagus with bleeding (principal); E43 Unspecified severe protein-calorie malnutrition; C15.5 Malignant neoplasm of lower third of esophagus; D62 Acute posthemorrhagic anemia; Z68.20 Body mass index [BMI] 20.0-20.9, adult; I10 Essential (primary) hypertension; E78.5 Hyperlipidemia, unspecified; N40.0 Benign prostatic hyperplasia without lower urinary tract symptoms
CPT/HCPCS: 36415; 36430; 80048; 80053; 82962; 85014; 85018; 85025; 85610; 85730; 86850; 86900; 86901; 86920; 88305; 88342; 93005; 97161-GP; 99291; A9270-GY; C9113; G8978-CJ-GP; G8979-CJ-GP; G8980-CJ-GP; J2765; P9016

== ENCOUNTER 2017-02-01 06:22 | Inpatient (IN) | payer MEDICARE, SELFPAY ==
[2017-01-21 11:34] LABS: BASOPHILS 0.6 %; BASOPHILS ABSOLUTE 0.02 10/3/uL (0.0-0.16); EOSINOPHILS 0.8 %; EOSINOPHILS ABSOLUTE 0.03 10/3/uL (0.0-0.53); HEMATOCRIT 34.5 % (40.0-51.0); IMMATURE GRANULOCYTES 0.8 %; IMMATURE GRANULOCYTES ABSOLUTE 0.03 10/3/uL (0.0-0.11); LYMPHOCYTES ABSOLUTE 0.61 10/3/uL (0.67-4.30); MANUAL DIFF NO %; MEAN CORPUS HGB CONC 31.9 g/dL (32.0-36.0); MEAN CORPUSCULAR VOLUME 87.8 fL (80-100); MEAN PLATELET VOLUME 8.5 fL (9.2-13.0); MONOCYTES 8.9 %; MONOCYTES ABSOLUTE 0.32 10/3/uL (0.21-1.20); NEUTROPHILS 71.9 %; NEUTROPHILS ABSOLUTE 2.58 10/3/uL (2.02-8.40); PLATELET COUNT 312 10/3/uL (150-400); RBC DISTRIBUTION WIDTH 15.6 % (12.0-16.0); RED CELL COUNT 3.93 10/6/uL (4.7-6.1); WHITE BLOOD CELLS 3.6 10/3/uL (4.5-10.5)
[2017-01-21 11:38] LABS: INTERNATIONAL NORMAL RATI 1.1 UNITS (-); PARTIAL THROMBO TIME 32.7 SEC (22.5-37.2); PROTIME (NOT ORD) 13.6 SEC (12.0-14.5)
[2017-01-21 11:55] LABS: ALBUMIN 3.2 G/DL (3.5-5.0); BUN (BLOOD UREA NITROGEN) 9 MG/DL (6-23); CALCIUM, SERUM 8.7 MG/DL (8.5-10.4); CHLORIDE, SERUM 107 MMOL/L (96-112); CO2 (CARBON DIOXIDE) 27 MMOL/L (24-34); CREATININE 0.68 MG/DL (0.70-1.30); GFR AFRICAN AMERICAN 112 ML/MIN (>=60); GFR NON AFRICAN AMERICAN 97 ML/MIN (>=60); GLOBULIN 3.3 G/DL (2.5-4.1); GLUCOSE, SERUM 87 MG/DL (60-99); POTASSIUM, SERUM 4.2 MMOL/L (3.5-5.3); SGPT(ALT) 15 U/L (5-65); SODIUM, SERUM 140 MMOL/L (135-148); T3 UPTAKE 16 % (30-45); T4 (THYROXINE) TOTAL 6.9 MCG/DL (4.5-12.0); TOTAL BILIRUBIN 0.1 MG/DL (0-1.2); TOTAL PROTEIN 6.5 G/DL (6.0-8.5)
[2017-01-21 11:56] LABS: ALKALINE PHOSPHATASE 92 U/L (45-117); SGOT(AST) 23 U/L (5-40)
[2017-01-21 13:07] LABS: ASCORBIC ACID (UR NOT ORDER) NEG (NEG); BILIRUBIN, URINE NEGATIVE (NEG); KETONE, URINE NEGATIVE (NEG); LEUKOCYTE ESTERASE(NOT OR MOD (NEG); WBC (NOT ORDERED) (RFLEX) 52 (0-5)
--- NOTE | ~2017-02-01 | DS ---
Discharge Summary [facility] [address] [place]. [address] NAME: RON MCKINNEY : [birth year] STATUS : DIS IN PAT#: [id number] AGE: 71 ADM/REG DATE : 02/01/17 MR#: [id number] REPORT SERV DATE: 02/24/17 DICTATED BY: THALIA JI JR. DATE: 02/23/17 REPORT STATUS : Draft TRANSCRIBED BY: SOLEDAD DATE: 02/23/17 Data Collection from hospitalization DISCHARGE DIAGNOSES: 1. 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 2. New-onset atrial fibrillation. 3. History of benign prostatic hypertrophy. 4. Hypertension. CONSULTATIONS: 1. Sonny Barrera M.D. 2. Jeff Montes De Oca M.D. PROCEDURES PERFORMED: 1. Transhiatal esophagectomy with pyloroplasty and esophagogastrostomy, removal of venous port on 02/01/2017. 2. Left cervical exploration for purpose of transhiatal esophagectomy with placement of bilateral chest tubes on 02/01/2017. 3. Water-soluble contrast swallow on 02/07/2017. 4. Echocardiogram on 02/04/2017. PATHOLOGY: Portal lymph node excision, no metastasis identified. Esophagogastrectomy, status post neoadjuvant therapy, no residual carcinoma identified with esophagus or stomach. Port-A-Cath, see gross description. MEDICATIONS: Lopressor 12.5 mg twice daily, Flomax 0.4 mg at bedtime, Maalox 10 mL four times daily as needed, aspirin 81 mg daily, Protonix 40 mg twice daily, and Dennard 5/325 one or two every six hours as needed. CONDITION AT DISCHARGE: Upon discharge, he did appear to be doing well and had no complaints. DISPOSITION: He had been discharged home to continue a mechanically soft diet with activity as discussed. He was to follow up with me in the office in one to two weeks and was to call for the appointment. He was also to call Dr. Jeff Montes De Oca for a followup appointment for three to four weeks. 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 This was a stage III lesion. He had received neoadjuvant radiation and chemotherapy. He had a good clinical response and radiographic response. There was no evidence of any distant metastatic disease. Exploration for resection was indicated. Additionally, he had a port placed and this was no longer functional. Removal was indicated. He was admitted for surgery and further evaluation. Upon admission to the hospital, he had also been evaluated by Dr. Jfef Montes De Oca preoperatively and he agreed with current treatment plan. He had been taken to the operating room by myself and Dr. Jeff Montes De Oca where he did undergo the above procedure. He tolerated this well and was transferred to the recovery room. On postop day #1, he did appear to be doing well, however, his blood pressure was noted to have been elevated during the night. He was afebrile and his vital Discharge Summary [facility] [address] [place]. [address] NAME: RON MCKINNEY : 47 STATUS : DIS IN PAT#: [id number] AGE: 71 ADM/REG DATE : 02/01/17 MR#: [id number] REPORT SERV DATE: 02/24/17 DICTATED BY: THALIA JI JR. DATE: 02/23/17 REPORT STATUS : Draft TRANSCRIBED BY: SOLEDAD DATE: 02/23/17 signs were stable. He was noted to be in sinus tachycardia with a rate at 112. On postop day #2, he continued to do well and his hemoglobin was noted to be up to 9 after a transfusion. His O2 saturation on room air was at 95%. He was continued on supportive care. He had been evaluated by Dr. Sonny Barrera as he had been noted to have new-onset atrial fibrillation and his EKG had shown atrial fibrillation with rapid ventricular response with repolarization abnormalities. He did note that the patient had undergone a PEA arrest at [facility] before being transferred to [facility] with a GI bleed. He was stabilized and then recovered at rehab and then was transferred to [facility] for esophageal resection after radiation therapy. He had been placed on Cardizem drip for the atrial fibrillation, and he was to resume aspirin as there was concern about segmental wall motion abnormalities in the presence of coronary artery disease. He had also been restarted on his beta-sha. On postop day #3, he did remain in stable condition and had no new complaints. He was continued on supportive care and did undergo the above limited echocardiogram. His hemoglobin was stable at 8.3. On postop day #4, he was noted to have a temperature of 100.4. He was continued on his current medications. He had remained in stable condition and did continue to do well. He was noted to be in sinus rhythm. On 02/05/2017, he had also been evaluated by Physical Therapy. On postop day #5, he was afebrile and his vital signs had remained stable. He was felt to be improving. His only complaint was that he wanted the chest tube out. He was continued on physical therapy. On 02/08/2017, he tolerated full liquids well and had no new complaints. His tube feeding was discontinued and his diet was being slowly advanced. He did continue to do well throughout the next few days and his diet was being advanced slowly. He did have continued improvement in his chest x-ray. On 02/11/2017, he did remain in stable condition and had no new complaints noted. As he continued to do well, he was then discharged on 02/13/2017 with the above instructions. Information collected by: Oli Barnes. I submit the above information as my discharge summary. TRA/SOLEDAD Thalia Ji Jr., M.D. / [id number] CC: Nikita Grullon Jr., M.D. Gordon Graham, M.D.
--- NOTE | ~2017-02-01 | CN ---
Consultation Report [place] [id number] [facility] [place]. [address] NAME: PAVAN CHAVARRIA : [birth year] STATUS : ADM IN PAT#: [id number] AGE: 71 ADM/REG DATE : 02/01/17 MR#: [id number] REPORT SERV DATE: 02/03/17 DICTATED BY: SONNY BARRERA DATE: 02/03/17 REPORT STATUS : Draft TRANSCRIBED BY: MODL DATE: 02/03/17 CONSULT DATE OF CONSULTATION: Mr. Pavan Chavarria is a 71-year-old male who was referred for new onset atrial fibrillation. CVD PHYSICIAN: Dr. Sonny Barrera. HISTORY OF PRESENT ILLNESS: Mr. Pavan Chavarria is postoperative day two of esophageal cancer resection. He has noted to have sudden onset of atrial fibrillation with rapid ventricular response. He has been placed on Cardizem for rate control. REVIEW OF SYSTEMS: Negative for chest pain, chest discomfort, prior palpitations, syncope, or presyncope. Prior symptoms of congestive heart failure such as orthopnea or lower extremity edema. The rest is negative. PAST MEDICAL HISTORY: 1. Significant for esophageal cancer. 2. History of BPH. SOCIAL HISTORY: He does not drink. He does not smoke. PHYSICAL EXAMINATION: VITAL SIGNS: Blood pressure is 130/70, rate is 140. GENERAL: He currently is alert and oriented. Changes of surgery noted in the esophageal area. CARDIAC: Precordium is quiet. S1, S2 are normal. LUNGS: Bilateral breath sounds heard without rales. ABDOMEN: Soft. Positive bowel sounds. EXTREMITIES: Warm. LABORATORY EVALUATION: 1. EKG shows atrial fibrillation with rapid ventricular response without repolarization abnormalities. 2. A previous echocardiogram was found from 11/26 which showed wall motion abnormality with akinetic apex and moderately decreased systolic function. Quality of study is very poor and so it was borderline nondiagnostic. ASSESSMENT: Mr. Pavan Chavarria underwent a PEA arrest at [facility] before being transferred here with a GI bleed. He was stabilized and recovered at rehab. He was then transferred here for esophageal resection after radiation therapy. Consultation Report [place] [id number] [facility] [place]. [address] NAME: PAVAN CHAVARRIA : 47 STATUS : ADM IN PAT#: [id number] AGE: 71 ADM/REG DATE : 02/01/17 MR#: [id number] REPORT SERV DATE: 02/03/17 DICTATED BY: SONNY BARRERA DATE: 02/03/17 REPORT STATUS : Draft TRANSCRIBED BY: SOLEDAD DATE: 02/03/17 Home medications had included amlodipine, metoprolol, assumed for hypertension. He is on a Cardizem drip and I will resume aspirin since I am concerned about segmental wall motion abnormalities in the presence of coronary artery disease. We will also restart beta sha. MERE/SOLEDAD Sonny Barrera M.D. / [id number] CC: Nikita Grullon Jr., M.D.
--- NOTE | ~2017-02-01 | CN ---
Consultation Report [facility] [address] [place]. [address] NAME: RON MCKINNEY : 47 STATUS : ADM IN PAT#: [id number] AGE: 71 ADM/REG DATE : 02/01/17 MR#: [id number] REPORT SERV DATE: 02/01/17 DICTATED BY: JEFF MONTES DE OCA DATE: 02/01/17 REPORT STATUS : Draft TRANSCRIBED BY: MODL DATE: 02/01/17 CONSULTATION DATE OF CONSULTATION: 02/01/2017 PERTINENT HISTORY: The patient is a 71-year-old gentleman, followed closely by Dr. 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 The patient is now being brought to the operating room for a transhiatal resection of the esophagus with cervical esophagogastrostomy and placement of bilateral chest tubes. We have been consulted to perform the left cervical dissection with approach and resection of the esophagus and also for the chest tube placement. PAST MEDICAL HISTORY: The past medical history is significant for recent neoadjuvant chemotherapy and radiation therapy. The patient tolerated that well. He had biopsy-proven adenocarcinoma in the lower third of the esophagus with inability to eat. The patient did have a time period of inability to eat after radiation therapy where he was able to bolster his nutritional status. He had no history of myocardial infarction. No history of stroke. REVIEW OF SYSTEMS: Significant for prior to his neoadjuvant therapy of inability to eat. He has been able to eat since then. No abdominal or chest pain. SOCIAL HISTORY: Negative for tobacco or ethanol use. FAMILY HISTORY: Noncontributory. PHYSICAL EXAMINATION: VITAL SIGNS: Examination is afebrile, blood pressure 130/70, and heart rate was 60. GENERAL: He is no acute distress. Alert and oriented x3. NEUROLOGICAL: Intact. CONSTITUTIONAL: He is well-developed, well-nourished. RESPIRATORY: Exam showed breath sounds bilaterally. CARDIAC: Exam showed regular rate and rhythm. No murmur noted. VASCULAR: Vascular exam showed full pulses throughout. GI: Examination showed the abdomen is soft and nontender without masses. MUSCULOSKELETAL: Normal and intact. SKIN: Showed no rash. PSYCHIATRIC: Exam is normal. NEUROLOGIC: Intact. 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 PLAN: The plan is to proceed with transhiatal esophagectomy with my portion being that of the left cervical approach and placement of bilateral chest tubes. Consultation Report [place] [id number] [place]. [address] NAME: RON MCKINNEY : [birth year] STATUS : ADM IN [facility]#: [id number] AGE: 71 ADM/REG DATE : 02/01/17 MR#: [id number] REPORT SERV DATE: 02/01/17 DICTATED BY: JEFF MONTES DE OCA DATE: 02/01/17 REPORT STATUS : Draft TRANSCRIBED BY: SOLEDAD DATE: 02/01/17 DIO/SOLEDAD Jeff Montes De Oca M.D. / [id number] CC: Ryan Sosa Jr., M.D.
--- NOTE | ~2017-02-01 | OP ---
Record Of Operation [facility] [address] [place]. [address] NAME: RON MCKINNEY : 47 STATUS : ADM IN PAT#: [id number] AGE: 71 ADM/REG DATE : 02/01/17 MR#: [id number] REPORT SERV DATE: 02/01/17 DICTATED BY: JEFF MONTES DE OCA DATE: 02/01/17 REPORT STATUS : Draft TRANSCRIBED BY: MODL DATE: 02/01/17 DATE OF PROCEDURE: 02/01/2017 PREOPERATIVE DIAGNOSIS: Esophageal carcinoma, adenocarcinoma type, status post radiation chemotherapy. POSTOPERATIVE DIAGNOSIS: Esophageal carcinoma, adenocarcinoma type, status post radiation chemotherapy. OPERATIVE PROCEDURE: Left cervical exploration for purpose of transhiatal esophagectomy with placement of bilateral chest tubes. OPERATIVE SURGEON: Jeff Montes De Oca M.D. ANESTHESIA: General endotracheal anesthesia, AA. DRAINS: A 15-Sudanese Héctor drain in the left neck. TUBES: A 32-Sudanese chest tubes, one in each pleural space. PROCEDURE IN DETAIL: The patient was taken to the operating room, placed in supine position. Anesthesia was obtained. The patient was prepped and draped in the usual sterile fashion. Dr. Sosa's team explored the abdomen via laparotomy after it was noted that the gastroesophageal segment was able to be resected. Then, an incision was made on the left neck into the sternocleidomastoid muscle extending from the mid neck all the way down to the suprasternal notch. The platysma muscle was incised with electrocautery. Deep cervical fascia was incised and the sternocleidomastoid muscle was retracted laterally. Carotid sheath was identified. It was also retracted laterally. The esophagus was identified. The NG tube was placed through the esophagus into the stomach. The cervical esophagus was then dissected with sharp dissection to circumscribe it and a Alexandria drain was placed around it for traction. Dissection of the cervical esophagus was continued into the thoracic outlet and into the superior portion of the visceral mediastinum. At that juncture, Dr. Sosa was dissecting from the abdomen through the esophageal hiatus of the diaphragm and dissection continued from both ends until the esophagus was completely freed from superior to inferior. At that time, soft tissue dissection was carried out. The appropriate stomach was brought through the esophageal bed into the left neck and Dr. Sosa sewed the esophagogastric anastomosis. Completion of that, a 32-Sudanese chest was placed in the left pleural space and a 32-Sudanese chest tube was placed in the right pleural space. Both chest tubes were placed through separate Pleur-evac into 20 cm water suction. A 15-Héctor drain was placed in the left neck with a separate lateral stab wound and sutured into place with a 2-0 nylon suture. The deep cervical fascia was closed with a running #1 Stratafix suture. The platysma muscle was closed with a running 4-0 Stratafix suture and the skin was approximated with running 3- 0 Stratafix suture. The Héctor-drain was placed to bulb suction. The skin incision was covered with Dermabond. The remainder of the abdominal procedure was performed and closed by Dr. Sosa. The patient was taken from the operating room to the ICU still intubated. Record Of Operation [facility] [address] [facility] [place]. [address] NAME: RON MCKINNEY : 47 STATUS : ADM IN [facility]#: [id number] AGE: 71 ADM/REG DATE : 02/01/17 MR#: [id number] REPORT SERV DATE: 02/01/17 DICTATED BY: JEFF MONTES DE OCA DATE: 02/01/17 REPORT STATUS : Draft TRANSCRIBED BY: SOLEDAD DATE: 02/01/17 DIO/SOLEDAD Jeff Montes De Oca M.D. / [id number] CC: Ryan Sosa Jr., M.D.
--- NOTE | ~2017-02-01 | OP ---
Record Of Operation [facility] [address] [place]. [address] NAME: RON MCKINNEY : 47 STATUS : ADM IN PAT#: [id number] AGE: 71 ADM/REG DATE : 02/01/17 MR#: [id number] REPORT SERV DATE: 02/01/17 DICTATED BY: THALIA JI JR. DATE: 02/01/17 REPORT STATUS : Draft TRANSCRIBED BY: MODL DATE: 02/01/17 DATE OF PROCEDURE: 02/01/2017 SURGEON: Thalia Ji M.D. DIAMOND SAW OPERATOR: Annette Calloway. PROCEDURE: Transhiatal esophagectomy with pyloroplasty and esophagogastrostomy; removal of venous port. PREOPERATIVE DIAGNOSIS: Carcinoma at the GE junction. POSTOPERATIVE DIAGNOSIS: Carcinoma at the GE junction. ANESTHESIA: General. 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 This was a stage III lesion. He received neoadjuvant radiation chemotherapy. He had a good clinical response and radiographic response. There was no evidence of any distant metastatic disease. Exploration for resection was indicated. Additionally he had a port placed and this was no longer functional. Removal is indicated. FINDINGS: The patient, during the performance of the laparotomy, there was no evidence of any metastatic disease. There was some firmness in the region of the EG junction and also some firmness in the region of the nodes around the left gastric artery. Additionally there was visible node in the portal region which appeared to be anthracotic. Liver was normal to inspection and palpation as was the remainder of the peritoneal cavity. Satisfactory mobilization of this site was undertaken. An end-to-side esophagogastroscopy was created. Pyloroplasty was performed. Pathologic examination showed negative margins and there were no drains noted during the port. FINDINGS: On exploration of the neck, are dictated separately by Dr. Montes De Oca. DESCRIPTION OF PROCEDURE: With adequate general anesthesia, the patient was placed in the supine position. The neck, chest, and abdomen were prepped and draped sterilely. An upper midline incision was made. The dissection was carried down sharply through the subcutaneous tissues. The fascia and peritoneum were opened. The peritoneal cavity was entered and the above-noted findings were encountered. Mobilization was performed by dividing the gastrocolic remnants securing bleeders with the M-Seal device. It was secured down to divide the short gastrics on up to the EG junction. The phrenoesophageal ligament was divided and the esophagus was mobilized in its distal aspect. Lesser curve material was also divided and the duodenum was mobilized. The left gastric vessels were identified, clamped, and divided securing with suture ligatures of silk and this facilitated complete mobilization of the stomach. Then a pyloroplasty was performed. A vertical incision was made across the pylorus and this was reapproximated in horizontal fashion with interrupted 2 0 silk sutures. Additional mobilization of the right colon was undertaken to facilitate the Record Of Operation [address] [address] NAME: RON MCKINNEY : 47 STATUS : ADM IN PAT#: [id number] AGE: 71 ADM/REG DATE : 02/01/17 MR#: [id number] REPORT SERV DATE: 02/01/17 DICTATED BY: THALIA JI JR. DATE: 02/01/17 REPORT STATUS : Draft TRANSCRIBED BY: MODL DATE: 02/01/[address] Montes De Oca entered to perform in the operating room and performed a neck exploration and portion of dissection and with dissection through the esophageal hiatus and from the neck. The esophagus was fully mobilized. Esophagus was then divided in the lower portion of the neck and a Alexandria drain was utilized to maintain the space. Then, the lesser curvature was clamped and divided and the stomach was divided securing the cuff of the stomach in maintaining gastric wall for the reconstruction of the GI tract. This enabled to move the specimen that was submitted to Pathology. Then, the stomach was closed off partially over the staple line with suture of silk, oriented appropriately passed through the esophageal bed up to the neck. Then an end-to-side esophagogastroscopy with an interrupted 3-0 silk sutures. The nasogastric tube was left through the anastomosis down into the stomach with its tip just at the pyloroplasty. Anastomosis was sprayed with Evicel. The neck wound was then closed and drained by Dr. Montes De Oca. This is dictated separately. After assurance of hemostasis in the abdomen, this wound was closed with fascial layer of 3-0 of 0 PDS subcutaneous Vicryl and dermal Monocryl. Negative pressure dressing was applied. During the port removal, a previous incision was reopened and dissection was carried down sharply to identify the port there was removed from its pocket. The catheter was removed intact from the entrance site. The entry site was closed with suture ligature of Vicryl and the wound was closed with subcutaneous Vicryl and dermal Monocryl. Sterile dressing was applied. The patient left the operating room in satisfactory condition. ESTIMATED BLOOD LOSS: 100 mL. DERICK/SOLEDAD Thalia Ji Jr., M.D. / [id number] CC: Thalia Ji Jr., M.D.
[~2017-02-01 06:22] MED LIST changes: +ACET500CAP PO; +PROTONIX PO; +TAMIFLU PO
[2017-02-01 13:09] LABS: BASOPHILS 0.2 %; BASOPHILS ABSOLUTE 0.01 10/3/uL (0.0-0.16); EOSINOPHILS 0.2 %; EOSINOPHILS ABSOLUTE 0.01 10/3/uL (0.0-0.53); IMMATURE GRANULOCYTES 0.2 %; IMMATURE GRANULOCYTES ABSOLUTE 0.01 10/3/uL (0.0-0.11); LYMPHOCYTES 6.2 %; LYMPHOCYTES ABSOLUTE 0.25 10/3/uL (0.67-4.30); MEAN CORPUS HGB CONC 32.1 g/dL (32.0-36.0); MEAN CORPUSCULAR HEMOGLOB 27.5 pg (26.0-34.0); MEAN CORPUSCULAR VOLUME 85.7 fL (80-100); MEAN PLATELET VOLUME 8.3 fL (9.2-13.0); MONOCYTES 8.1 %; MONOCYTES ABSOLUTE 0.33 10/3/uL (0.21-1.20); NEUTROPHILS 85.1 %; NEUTROPHILS ABSOLUTE 3.45 10/3/uL (2.02-8.40); RBC DISTRIBUTION WIDTH 15.7 % (12.0-16.0); WHITE BLOOD CELLS 4.1 10/3/uL (4.5-10.5)
[2017-02-01 13:14] LABS: HEMATOCRIT 23.4 % (40.0-51.0); HEMOGLOBIN 7.5 g/dL (13.6-17.8); MANUAL DIFF NO %; PLATELET COUNT 136 10/3/uL (150-400); RED CELL COUNT 2.73 10/6/uL (4.7-6.1)
[2017-02-01 13:21] LABS: BUN (BLOOD UREA NITROGEN) 7 MG/DL (6-23); CHLORIDE, SERUM 113 MMOL/L (96-112); CO2 (CARBON DIOXIDE) 25 MMOL/L (24-34); CREATININE 0.68 MG/DL (0.70-1.30); GFR AFRICAN AMERICAN 112 ML/MIN (>=60); GFR NON AFRICAN AMERICAN 97 ML/MIN (>=60); POTASSIUM, SERUM 3.8 MMOL/L (3.5-5.3); SODIUM, SERUM 143 MMOL/L (135-148)
[2017-02-01 13:22] LABS: CALCIUM, SERUM 7.7 MG/DL (8.5-10.4); GLUCOSE, SERUM 138 MG/DL (60-99)
[2017-02-01 18:52] LABS: HEMATOCRIT 24.8 % (40.0-51.0)
[2017-02-01 18:56] LABS: BE (BASE EXCESS) -5.7 MEQ/L (0 +/- 2.5); CARBOXYHEMOGLOBIN 0.4 % (0-3); DEVICE NC; HCO3 (ACTUAL BICARBONATE) 19.8 MEQ/L (23-27); HEMOBLOGIN CONTENT 8.4 G/DL (14-18); INSTRUMENT SERIAL # 11843; METHEMOGLOBIN 0.7 % (0-3); O2 CONTENT 11.5 VOL% (18-24); OPERATOR ID 32214; PCO2 (CO2 TENSION) 39 MMHG (35-45); PO2 (O2 TENSION) 101 MMHG (79-93); SAMPLE Arterial; pH 7.33 (7.37-7.43)
[2017-02-02 03:32] LABS: HEMATOCRIT 22.9 % (40.0-51.0); HEMOGLOBIN 7.2 g/dL (13.6-17.8); MEAN CORPUS HGB CONC 31.4 g/dL (32.0-36.0); MEAN CORPUSCULAR HEMOGLOB 27.1 pg (26.0-34.0); MEAN CORPUSCULAR VOLUME 86.1 fL (80-100); MEAN PLATELET VOLUME 8.5 fL (9.2-13.0); PLATELET COUNT 154 10/3/uL (150-400); RBC DISTRIBUTION WIDTH 15.6 % (12.0-16.0); RED CELL COUNT 2.66 10/6/uL (4.7-6.1)
[2017-02-02 03:33] LABS: MANUAL DIFF YES %; WHITE BLOOD CELLS 7.2 10/3/uL (4.5-10.5)
[2017-02-02 03:44] LABS: BUN (BLOOD UREA NITROGEN) 9 MG/DL (6-23); CHLORIDE, SERUM 109 MMOL/L (96-112); CO2 (CARBON DIOXIDE) 24 MMOL/L (24-34); CREATININE 0.82 MG/DL (0.70-1.30); GFR AFRICAN AMERICAN 104 ML/MIN (>=60); GFR NON AFRICAN AMERICAN 90 ML/MIN (>=60); GLUCOSE, SERUM 119 MG/DL (60-99); POTASSIUM, SERUM 3.9 MMOL/L (3.5-5.3); SODIUM, SERUM 142 MMOL/L (135-148)
[2017-02-02 03:52] LABS: BAND NEUTROPHILS 16 %; MONOCYTES 7 %; SEGMENTED NEUTROPHIL (0) 77 %; TOTAL NUCLEATED CELLS 100
[2017-02-02 03:53] LABS: PLATELET ESTIMATE ADQ (ADEQUATE); RBC MORPHOLOGY NORM (NORMAL)
[2017-02-02 11:22] LABS: HEMOGLOBIN 5.8 g/dL (13.6-17.8)
[2017-02-02 11:23] LABS: HEMATOCRIT 18.1 % (40.0-51.0)
[2017-02-02 21:30] LABS: MEAN CORPUS HGB CONC 32.4 g/dL (32.0-36.0); MEAN CORPUSCULAR VOLUME 86.2 fL (80-100); PLATELET COUNT 147 10/3/uL (150-400)
[2017-02-02 21:31] LABS: HEMATOCRIT 29.9 % (40.0-51.0); HEMOGLOBIN 9.7 g/dL (13.6-17.8); RED CELL COUNT 3.47 10/6/uL (4.7-6.1)
[2017-02-03 04:00] LABS: BASOPHILS 0.1 %; BASOPHILS ABSOLUTE 0.01 10/3/uL (0.0-0.16); EOSINOPHILS 0 %; HEMATOCRIT 28.4 % (40.0-51.0); HEMOGLOBIN 9.4 g/dL (13.6-17.8); IMMATURE GRANULOCYTES 0.3 %; IMMATURE GRANULOCYTES ABSOLUTE 0.03 10/3/uL (0.0-0.11); LYMPHOCYTES 4.3 %; LYMPHOCYTES ABSOLUTE 0.43 10/3/uL (0.67-4.30); MEAN CORPUS HGB CONC 33.1 g/dL (32.0-36.0); MEAN CORPUSCULAR HEMOGLOB 28.6 pg (26.0-34.0); MEAN CORPUSCULAR VOLUME 86.3 fL (80-100); MONOCYTES 8.1 %; NEUTROPHILS 87.2 %; NEUTROPHILS ABSOLUTE 8.63 10/3/uL (2.02-8.40); PLATELET COUNT 140 10/3/uL (150-400); RED CELL COUNT 3.29 10/6/uL (4.7-6.1); WHITE BLOOD CELLS 9.9 10/3/uL (4.5-10.5)
[2017-02-03 04:01] LABS: MANUAL DIFF NO %
[2017-02-03 16:01] LABS: BUN (BLOOD UREA NITROGEN) 11 MG/DL (6-23); CALCIUM, SERUM 8.2 MG/DL (8.5-10.4); CHLORIDE, SERUM 106 MMOL/L (96-112); CO2 (CARBON DIOXIDE) 28 MMOL/L (24-34); CREATININE 0.49 MG/DL (0.70-1.30); GFR AFRICAN AMERICAN 128 ML/MIN (>=60); GFR NON AFRICAN AMERICAN 111 ML/MIN (>=60); GLUCOSE, SERUM 111 MG/DL (60-99); POTASSIUM, SERUM 3.7 MMOL/L (3.5-5.3); SODIUM, SERUM 138 MMOL/L (135-148)
[2017-02-03 16:02] LABS: TROPONIN I 0.17 NG/ML (<0.05)
[2017-02-04 03:38] LABS: BASOPHILS 0.1 %; BASOPHILS ABSOLUTE 0.01 10/3/uL (0.0-0.16); EOSINOPHILS 0.7 %; EOSINOPHILS ABSOLUTE 0.05 10/3/uL (0.0-0.53); HEMATOCRIT 25.9 % (40.0-51.0); HEMOGLOBIN 8.3 g/dL (13.6-17.8); IMMATURE GRANULOCYTES 0.1 %; IMMATURE GRANULOCYTES ABSOLUTE 0.01 10/3/uL (0.0-0.11); LYMPHOCYTES 4.4 %; MEAN CORPUSCULAR HEMOGLOB 27.9 pg (26.0-34.0); MEAN CORPUSCULAR VOLUME 87.2 fL (80-100); MEAN PLATELET VOLUME 8.7 fL (9.2-13.0); MONOCYTES 10.5 %; MONOCYTES ABSOLUTE 0.71 10/3/uL (0.21-1.20); NEUTROPHILS 84.2 %; PLATELET COUNT 138 10/3/uL (150-400); RBC DISTRIBUTION WIDTH 16.1 % (12.0-16.0); RED CELL COUNT 2.97 10/6/uL (4.7-6.1); WHITE BLOOD CELLS 6.8 10/3/uL (4.5-10.5)
[2017-02-04 03:39] LABS: MANUAL DIFF NO %
[2017-02-04 04:01] LABS: BUN (BLOOD UREA NITROGEN) 11 MG/DL (6-23); CALCIUM, SERUM 7.9 MG/DL (8.5-10.4); CHLORIDE, SERUM 105 MMOL/L (96-112); CO2 (CARBON DIOXIDE) 30 MMOL/L (24-34); CREATININE 0.46 MG/DL (0.70-1.30); GFR AFRICAN AMERICAN 132 ML/MIN (>=60); GFR NON AFRICAN AMERICAN 114 ML/MIN (>=60); GLUCOSE, SERUM 133 MG/DL (60-99); POTASSIUM, SERUM 3.6 MMOL/L (3.5-5.3); SODIUM, SERUM 138 MMOL/L (135-148); TROPONIN I 0.23 NG/ML (<0.05)
[2017-02-05 04:59] LABS: BASOPHILS 0.2 %; BASOPHILS ABSOLUTE 0.01 10/3/uL (0.0-0.16); EOSINOPHILS 1.9 %; HEMOGLOBIN 8.9 g/dL (13.6-17.8); LYMPHOCYTES 4.5 %; LYMPHOCYTES ABSOLUTE 0.24 10/3/uL (0.67-4.30); MEAN CORPUS HGB CONC 31.8 g/dL (32.0-36.0); MEAN CORPUSCULAR VOLUME 88.1 fL (80-100); MEAN PLATELET VOLUME 9.2 fL (9.2-13.0); MONOCYTES 10.9 %; MONOCYTES ABSOLUTE 0.59 10/3/uL (0.21-1.20); NEUTROPHILS 82.5 %; NEUTROPHILS ABSOLUTE 4.45 10/3/uL (2.02-8.40); PLATELET COUNT 168 10/3/uL (150-400); RED CELL COUNT 3.18 10/6/uL (4.7-6.1); WHITE BLOOD CELLS 5.4 10/3/uL (4.5-10.5)
[2017-02-05 05:07] LABS: MANUAL DIFF NO %
[2017-02-05 05:16] LABS: BUN (BLOOD UREA NITROGEN) 9 MG/DL (6-23); CALCIUM, SERUM 7.8 MG/DL (8.5-10.4); CHLORIDE, SERUM 103 MMOL/L (96-112); CO2 (CARBON DIOXIDE) 30 MMOL/L (24-34); CREATININE 0.52 MG/DL (0.70-1.30); GFR AFRICAN AMERICAN 125 ML/MIN (>=60); GFR NON AFRICAN AMERICAN 108 ML/MIN (>=60); GLUCOSE, SERUM 154 MG/DL (60-99); SODIUM, SERUM 137 MMOL/L (135-148)
[2017-02-06 05:10] LABS: BASOPHILS 0.2 %; BASOPHILS ABSOLUTE 0.01 10/3/uL (0.0-0.16); EOSINOPHILS 3.2 %; EOSINOPHILS ABSOLUTE 0.18 10/3/uL (0.0-0.53); HEMOGLOBIN 10.2 g/dL (13.6-17.8); IMMATURE GRANULOCYTES 0.4 %; IMMATURE GRANULOCYTES ABSOLUTE 0.02 10/3/uL (0.0-0.11); LYMPHOCYTES ABSOLUTE 0.39 10/3/uL (0.67-4.30); MANUAL DIFF NO %; MEAN CORPUS HGB CONC 31.9 g/dL (32.0-36.0); MEAN CORPUSCULAR HEMOGLOB 27.9 pg (26.0-34.0); MEAN CORPUSCULAR VOLUME 87.4 fL (80-100); MONOCYTES 14.3 %; MONOCYTES ABSOLUTE 0.79 10/3/uL (0.21-1.20); NEUTROPHILS 74.9 %; NEUTROPHILS ABSOLUTE 4.15 10/3/uL (2.02-8.40); PLATELET COUNT 208 10/3/uL (150-400); RED CELL COUNT 3.66 10/6/uL (4.7-6.1); WHITE BLOOD CELLS 5.5 10/3/uL (4.5-10.5)
[2017-02-06 05:23] LABS: BUN (BLOOD UREA NITROGEN) 9 MG/DL (6-23); CALCIUM, SERUM 8.7 MG/DL (8.5-10.4); CHLORIDE, SERUM 104 MMOL/L (96-112); CO2 (CARBON DIOXIDE) 29 MMOL/L (24-34); CREATININE 0.44 MG/DL (0.70-1.30); GFR AFRICAN AMERICAN 134 ML/MIN (>=60); GFR NON AFRICAN AMERICAN 116 ML/MIN (>=60); GLUCOSE, SERUM 145 MG/DL (60-99); POTASSIUM, SERUM 3.9 MMOL/L (3.5-5.3); SODIUM, SERUM 139 MMOL/L (135-148)
[2017-02-07 05:41] LABS: BASOPHILS 0.2 %; BASOPHILS ABSOLUTE 0.01 10/3/uL (0.0-0.16); EOSINOPHILS 3.9 %; EOSINOPHILS ABSOLUTE 0.25 10/3/uL (0.0-0.53); HEMATOCRIT 31.7 % (40.0-51.0); HEMOGLOBIN 10.1 g/dL (13.6-17.8); IMMATURE GRANULOCYTES 0.5 %; IMMATURE GRANULOCYTES ABSOLUTE 0.03 10/3/uL (0.0-0.11); LYMPHOCYTES 13.4 %; LYMPHOCYTES ABSOLUTE 0.85 10/3/uL (0.67-4.30); MEAN CORPUS HGB CONC 31.9 g/dL (32.0-36.0); MEAN CORPUSCULAR HEMOGLOB 27.4 pg (26.0-34.0); MEAN CORPUSCULAR VOLUME 86.1 fL (80-100); MEAN PLATELET VOLUME 9.1 fL (9.2-13.0); MONOCYTES 5.8 %; MONOCYTES ABSOLUTE 0.37 10/3/uL (0.21-1.20); NEUTROPHILS 76.2 %; NEUTROPHILS ABSOLUTE 4.84 10/3/uL (2.02-8.40); PLATELET COUNT 234 10/3/uL (150-400); RED CELL COUNT 3.68 10/6/uL (4.7-6.1); WHITE BLOOD CELLS 6.4 10/3/uL (4.5-10.5)
[2017-02-07 05:43] LABS: MANUAL DIFF NO %
[2017-02-07 05:55] LABS: BUN (BLOOD UREA NITROGEN) 10 MG/DL (6-23); CALCIUM, SERUM 9.1 MG/DL (8.5-10.4); CHLORIDE, SERUM 104 MMOL/L (96-112); CO2 (CARBON DIOXIDE) 26 MMOL/L (24-34); CREATININE 0.49 MG/DL (0.70-1.30); GFR AFRICAN AMERICAN 128 ML/MIN (>=60); GFR NON AFRICAN AMERICAN 111 ML/MIN (>=60); GLUCOSE, SERUM 121 MG/DL (60-99); POTASSIUM, SERUM 4.2 MMOL/L (3.5-5.3); SODIUM, SERUM 137 MMOL/L (135-148)
[2017-02-13] MEDS ORDERED: HALF81 PO (11:16)
[2017-02-13] MEDS ORDERED: NORCO1 TA1 PO (11:17)
== END 2017-02-13 15:02 | disposition home or self-care (01) | DRG 327 ==
LOC: SDC/OF 06:22 → PACU 12:08 → CVICU 15:04 → 5NO 02-04 13:52
PROVIDERS: Specialist
PROC: 0DQ70ZZ Repair Stomach, Pylorus, Open Approach (ICD-10-PCS; 2017-02-01)
PROC: 0JPT0XZ Removal of Tunneled Vascular Access Device from Trunk Subcutaneous Tissue and Fascia, Open Approach (ICD-10-PCS; 2017-02-01)
PROC: 0D130Z6 Bypass Lower Esophagus to Stomach, Open Approach (ICD-10-PCS; principal; 2017-02-01 07:45)
PROC: 0DB30ZZ Excision of Lower Esophagus, Open Approach (ICD-10-PCS; 2017-02-01 07:45)
DX: C16.0 Malignant neoplasm of cardia (principal); I97.89 Other postprocedural complications and disorders of the circulatory system, not elsewhere classified; I48.91 Unspecified atrial fibrillation; J95.812 Postprocedural air leak
CPT/HCPCS: 36415; 71010; 71020; 74220; 80048; 80053; 81001; 82805; 82962; 83735; 84436; 84443; 84479; 84484; 85014; 85018; 85025; 85027; 85610; 85730; 86850; 86900; 86901; 86920; 87077; 87086; 87186; 88300; 88305; 88309; 88331; 88341; 88342; 93005; 93307; 94002; 94660; 94770; 97116-GP; 97162-GP; A9270-GY; C1751; C1769; C1894; G8978-CK-GP; G8979-CJ-GP; J0690; J2250; J2300; J2370; J2405; J2710; J3010; J3475; P9016; P9045